=== PATIENT | female | born 1965 | race Caucasian/White ===

== ENCOUNTER → 2017-02-23 | Outpatient (REF) | payer MEDICARE ==
[~2017-02-23] MED LIST: /CLON1TA OR; /OXYC15TA OR; /PANT40TA OR; ABIL2TAB PO; ALBU17IN2 INH; ATEN50TA2 PO; ATIV0.5T3 PO; ATIV1TAB2 OR; BUDE150T OR; EXALGO PO; FLAG500T; HEARTAB OR; HYDR25TA8 OR; IBUP200C PO; LASI20TA OR; LEVA500T; LODINE PO; LYRI75CA PO; MELOPOW PO; NEUR300C; NEUR300C PO; NEUR600T; NEXI20CA; OXYC10TA97 OR; PERC5TAB8; PERC5TAB8 OR; PERC5TAB8 PO; PREG100CA; PREG100CA PO; PROP80CA; SYMB80AE IN; TIZA4TAB; TRAM50TA2; TYLE500T53 OR; ULTR200T; VALA1TAB PO; VALI5TAB; VALI5TAB PO; VALS80CA OR; VICO5TAB; VITAMIN D50000 UNT; WELL200T; WELLBUTRIN PO; XOPEAER IN; [UNRECOGNIZED DRUG - CODE]; [UNRECOGNIZED DRUG - CODE] PO; nucynta PO
[2017-02-23 18:58] LABS: MEAN CORPUSCULAR HEMOGLOBIN 29.1 pg (27.0-33.0); MEAN CORPUSCULAR HGB CONC 32.4 g/dl (32.0-36.5); MEAN CORPUSCULAR VOLUME 90.1 fl (80.0-96.0); PLATELET COUNT, AUTOMATED 308 10^3/uL (150-450); RED CELL DISTRIBUTION WIDTH 12.7 % (11.5-14.5); WHITE BLOOD COUNT 8.1 10^3/uL (4.0-10.0)
[2017-02-23 19:18] LABS: ANION GAP 7 MEQ/L (8-16); BLOOD UREA NITROGEN 20 MG/DL (7-18); CALCIUM LEVEL 8.7 MG/DL (8.5-10.1); CARBON DIOXIDE LEVEL 29 MEQ/L (21-32); CHLORIDE LEVEL 107 MEQ/L (98-107); CREATININE FOR GFR 0.98 MG/DL (0.55-1.02); FREE T4 0.99 NG/DL (0.76-1.46); GLOMERULAR FILTRATION RATE > 60.0 (>51); GLUCOSE, FASTING 132 MG/DL (70-105); POTASSIUM SERUM 4.2 MEQ/L (3.5-5.1); SODIUM LEVEL 143 MEQ/L (136-145)
== END ==
LOC: M SFHCLERA 13:32
PROVIDERS: ATTEND Family Medicine
DX: M25.50 Pain in unspecified joint (principal); Z79.899 Other long term (current) drug therapy

== ENCOUNTER → 2017-08-31 | Outpatient (REF) | payer MEDICARE, SELFPAY ==
[2017-08-31 12:39] LABS: ALBUMIN 3.3 GM/DL (3.2-5.2); ALBUMIN/GLOBULIN RATIO 0.85 (1.00-1.93); ALKALINE PHOSPHATASE 99 U/L (45-117); ALT/SGPT 16 U/L (12-78); ANION GAP 6 MEQ/L (8-16); AST/SGOT 14 U/L (7-37); BILIRUBIN,TOTAL 0.5 MG/DL (0.2-1.0); BLOOD UREA NITROGEN 18 MG/DL (7-18); CALCIUM LEVEL 8.5 MG/DL (8.5-10.1); CARBON DIOXIDE LEVEL 28 MEQ/L (21-32); CHLORIDE LEVEL 108 MEQ/L (98-107); CHOLESTEROL LEVEL 202 MG/DL (<200); CHOLESTEROL RISK RATIO 3.258 (<5); CREATININE FOR GFR 1.09 MG/DL (0.55-1.30); GLOMERULAR FILTRATION RATE 56.1 (>51); GLUCOSE, FASTING 67 MG/DL (70-100); HDL CHOLESTEROL 62 MG/DL (>40); LDL CHOLESTEROL 123.8 MG/DL (<100); NON-HDL-C 140 MG/DL; POTASSIUM SERUM 4.3 MEQ/L (3.5-5.1); SODIUM LEVEL 142 MEQ/L (136-145); TOTAL PROTEIN 7.2 GM/DL (6.4-8.2); TRIGLYCERIDES LEVEL 81 MG/DL (<150)
[2017-08-31 12:58] LABS: ESTIMATED AVERAGE GLUCOSE 103 MG/DL (60-110); HEMOGLOBIN A1c 5.2 %
== END ==
LOC: M SFHCLERA 08:16
DX: I10 Essential (primary) hypertension (principal); E89.0 Postprocedural hypothyroidism; E78.2 Mixed hyperlipidemia; R73.01 Impaired fasting glucose
CPT/HCPCS: 84443

== ENCOUNTER → 2018-01-08 | Outpatient (CLI) | payer BC | LOC: M RAD 17:06 | DX: Z12.31 Encounter for screening mammogram for malignant neoplasm of breast (principal) ==

== ENCOUNTER → 2018-06-01 | Outpatient (REF) | payer BC ==
[2018-06-01 17:11] LABS: HEMOGLOBIN A1c 5.9 %
[2018-06-01 17:29] LABS: ALBUMIN 3.5 GM/DL (3.2-5.2); ALT/SGPT 22 U/L (12-78); BILIRUBIN,TOTAL 0.5 MG/DL (0.2-1.0); BLOOD UREA NITROGEN 20 MG/DL (7-18); CALCIUM LEVEL 8.7 MG/DL (8.5-10.1); CARBON DIOXIDE LEVEL 23 MEQ/L (21-32); CHLORIDE LEVEL 104 MEQ/L (98-107); CHOLESTEROL LEVEL 167 MG/DL (<200); CHOLESTEROL RISK RATIO 3.211 (<5); CREATININE FOR GFR 0.97 MG/DL (0.55-1.30); GLOMERULAR FILTRATION RATE > 60.0 (>51); GLUCOSE, FASTING 77 MG/DL (70-100); HDL CHOLESTEROL 52 MG/DL (>40); LDL CHOLESTEROL 91 MG/DL (<100); NON-HDL-C 115 MG/DL; POTASSIUM SERUM 4.5 MEQ/L (3.5-5.1); SODIUM LEVEL 138 MEQ/L (136-145); TOTAL PROTEIN 7.5 GM/DL (6.4-8.2); TRIGLYCERIDES LEVEL 122 MG/DL (<150)
== END ==
LOC: M SFHCLERA 14:43
PROVIDERS: ATTEND Nurse Practitioner Family
DX: E78.2 Mixed hyperlipidemia (principal); E89.0 Postprocedural hypothyroidism

== ENCOUNTER → 2019-03-04 | Outpatient (REF) | payer OTHER ==
[~2019-03-04] MED LIST changes: -/CLON1TA OR; -/OXYC15TA OR; -/PANT40TA OR; +CLON-412 OR; +OXYC1TAB32 OR; +PROT1TAB2 OR
[2019-03-04 20:37] LABS: FREE T4 1.17 NG/DL (0.76-1.46); THYROID STIMULATING HORMONE 1.14 uIU/ML (0.358-3.740)
== END ==
LOC: M SFHCLERA 15:13
PROVIDERS: ATTEND Nurse Practitioner Family
DX: E89.0 Postprocedural hypothyroidism (principal)

== ENCOUNTER 2019-07-18 14:21 | Emergency (ER) | payer OTHER ==
[~2019-07-18] VITALS: Ht 165.1 cm; Wt 100.6 kg
[2019-07-18 14:53] LABS: BASO # 0.1 10^3/uL (0.0-0.2); BASO % 0.7 % (0.0-1.0); EOS # 0.2 10^3/uL (0.0-0.5); EOS % 2.5 % (0.0-3.0); HEMATOCRIT 42.3 % (36.0-47.0); HEMOGLOBIN 14.2 g/dl (12.0-15.5); LYMPH % 23.3 % (24.0-44.0); MEAN CORPUSCULAR HEMOGLOBIN 29.2 pg (27.0-33.0); MEAN CORPUSCULAR HGB CONC 33.6 g/dl (32.0-36.5); MONO # 0.6 10^3/uL (0.0-0.8); MONO % 6.8 % (0.0-5.0); NEUTROPHILS # 5.8 10^3/uL (1.5-8.5); NEUTROPHILS % 66.2 % (36.0-66.0); PLATELET COUNT, AUTOMATED 318 10^3/uL (150-450); RED BLOOD COUNT 4.86 10^6/uL (4.00-5.40); WHITE BLOOD COUNT 8.7 10^3/uL (4.0-10.0)
[2019-07-18 15:21] LABS: BLOOD UREA NITROGEN 22 MG/DL (7-18); CALCIUM LEVEL 8.9 MG/DL (8.5-10.1); CARBON DIOXIDE LEVEL 27 MEQ/L (21-32); CHLORIDE LEVEL 106 MEQ/L (98-107); CK-MB VALUE MASS < 1.0 NG/ML (<3.6); CPK CREATINE PHOSPHOKINASE 123 U/L (26-192); CREATININE FOR GFR 1.13 MG/DL (0.55-1.30); GLOMERULAR FILTRATION RATE 53.4 (>51); GLUCOSE, FASTING 147 MG/DL (70-100); MB/CK RELATIVE INDEX 0.81 (< OR =4); POTASSIUM SERUM 3.9 MEQ/L (3.5-5.1); SODIUM LEVEL 139 MEQ/L (136-145); TROPONIN I < 0.02 NG/ML (< 0.10)
[2019-07-18 17:24] LABS: CK-MB VALUE MASS < 1.0 NG/ML (<3.6); CPK CREATINE PHOSPHOKINASE 112 U/L (26-192); MB/CK RELATIVE INDEX 0.89 (< OR =4); TROPONIN I < 0.02 NG/ML (< 0.10)
[2019-07-18 17:38] VITALS: BP 170/95
--- NOTE | 2019-07-18 17:39 | REP ---
Portable chest x-ray: Single view. History: Chest pain. Comparison chest x-ray April 24, 2012. Findings: Monitoring electrodes are seen overlying the chest. There are surgical clips in the soft tissues of the neck on the right side consistent with previous thyroid surgery. The lungs are well inflated and clear. Heart is not enlarged. Pulmonary vasculature is not increased. No significant bony abnormality is appreciated. Heart size is normal. Impression: No acute disease. Surgical clips in the soft tissues of the neck on the right side. Electronically Signed by Juan Pablo Schmidt MD 07/18/2019 07:16 P
--- NOTE | 2019-07-19 12:27 | ECGEPIP ---
[facility] - ED Test Date: 2019-07-18 Pat Name: TAMMY OLMSTEAD Department: Room: - Gender: Female Clinical Specialist Vascular: jorge a : 1965 Requested By: PAULA PRECIADO Order Number: [id number] Reading MD: Ingrid Mcbride Measurements Intervals [place] Rate: 73 P: 23 [place]: 194 QRS: 12 QRSD: 86 T: 25 QT: 374 QTc: 413 Interpretive Statements SINUS RHYTHM SIMILAR 07/18/19 Electronically Signed on 07-19-2019 12:27:18 EDT by Ingrid Mcbride
--- NOTE | 2019-07-19 12:27 | ECGEPIP ---
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
== END 2019-07-18 18:11 | disposition home or self-care (01) ==
LOC: M ED 14:21
DX: R07.9 Chest pain, unspecified (principal); I10 Essential (primary) hypertension; K21.9 Gastro-esophageal reflux disease without esophagitis; J45.909 Unspecified asthma, uncomplicated; M54.2 Cervicalgia; F41.9 Anxiety disorder, unspecified; F17.210 Nicotine dependence, cigarettes, uncomplicated; Z88.0 Allergy status to penicillin; Z88.2 Allergy status to sulfonamides; Z88.5 Allergy status to narcotic agent; Z88.8 Allergy status to other drugs, medicaments and biological substances; Z91.041 Radiographic dye allergy status; Z79.899 Other long term (current) drug therapy

== ENCOUNTER 2019-08-29 18:43 | Emergency (ER) | payer MEDICARE, OTHER ==
[~2019-08-29] VITALS: Ht 165.1 cm; Wt 103.8 kg
[2019-08-29 18:43] VITALS: BP 162/95
[2019-08-29] MEDS ORDERED: META1TAB22 (18:50)
[2019-08-29] MEDS ORDERED: OXYC10TA3 (18:50)
[2019-08-29] MEDS ORDERED: LEVO50TA5 PO (19:04)
--- NOTE | 2019-08-29 23:07 | REP ---
REASON: Pain. There is tricompartmental marginal osteophytosis with medial compartmental narrowing and patellofemoral joint space narrowing. There is no acute fracture, dislocation, or subluxation. IMPRESSION: Chronic changes. Electronically Signed by Moises Ramirez DO 08/30/2019 08:27 A
== END 2019-08-29 20:24 | disposition home or self-care (01) ==
LOC: M ED 18:43
DX: M25.561 Pain in right knee (principal); I10 Essential (primary) hypertension; J45.909 Unspecified asthma, uncomplicated; K58.9 Irritable bowel syndrome, unspecified; F17.210 Nicotine dependence, cigarettes, uncomplicated; G43.909 Migraine, unspecified, not intractable, without status migrainosus; G35 Multiple sclerosis; F41.9 Anxiety disorder, unspecified; F32.9 Major depressive disorder, single episode, unspecified; Z88.0 Allergy status to penicillin; Z88.1 Allergy status to other antibiotic agents; Z88.2 Allergy status to sulfonamides; Z88.5 Allergy status to narcotic agent; Z88.6 Allergy status to analgesic agent; Z88.8 Allergy status to other drugs, medicaments and biological substances; Z91.041 Radiographic dye allergy status; Z79.899 Other long term (current) drug therapy

== ENCOUNTER 2019-09-15 11:20 | Emergency (ER) | payer MEDICARE ==
[~2019-09-15] VITALS: Ht 165.1 cm; Wt 102.6 kg
[~2019-09-15 11:20] MED LIST changes: +LEVO50TA5 PO; +META1TAB22; +OXYC10TA3
[2019-09-15 11:21] VITALS: BP 143/83
[2019-09-15] MEDS ORDERED: META1TAB22 PO (11:36)
[2019-09-15] MEDS ORDERED: CLON-412 PO (11:36)
[2019-09-15] MEDS ORDERED: ALBU8.5H PO (11:36)
--- NOTE | 2019-09-16 12:36 | REP ---
LEFT RIBS: REASON: Left-sided pain after trauma. Preliminary report given by Dr. Pereyra. FINDINGS: Five views of the ribs show no acute fracture or destructive osseous lesion. The accompanying frontal view of the chest shows no cardiomegaly, infiltrates, effusions or pneumothoraces. IMPRESSION: Negative rib series. Electronically Signed by Moises Ramirez DO 09/16/2019 03:16 P
== END 2019-09-15 12:38 | disposition home or self-care (01) ==
LOC: M ED 11:20
DX: S23.41XA Sprain of ribs, initial encounter (principal); W01.0XXA Fall on same level from slipping, tripping and stumbling without subsequent striking against object, initial encounter; Y92.89 Other specified places as the place of occurrence of the external cause; Y93.01 Activity, walking, marching and hiking; G35 Multiple sclerosis; I10 Essential (primary) hypertension; J45.909 Unspecified asthma, uncomplicated; K21.9 Gastro-esophageal reflux disease without esophagitis; K58.9 Irritable bowel syndrome, unspecified; F41.9 Anxiety disorder, unspecified; F32.9 Major depressive disorder, single episode, unspecified; G43.909 Migraine, unspecified, not intractable, without status migrainosus; Z79.899 Other long term (current) drug therapy; F17.200 Nicotine dependence, unspecified, uncomplicated; Z87.442 Personal history of urinary calculi; Z91.041 Radiographic dye allergy status; Z88.0 Allergy status to penicillin; Z88.5 Allergy status to narcotic agent; Z88.2 Allergy status to sulfonamides; Z88.8 Allergy status to other drugs, medicaments and biological substances

== ENCOUNTER → 2019-09-30 | Outpatient (REF) | payer MEDICARE ==
[~2019-09-30] MED LIST changes: +ALBU8.5H PO; +CLON-412 PO; +DOXY-342 PO; +META1TAB22 PO
[2019-09-30 13:13] LABS: BLOOD UREA NITROGEN 19 MG/DL (7-18); CARBON DIOXIDE LEVEL 25 MEQ/L (21-32); CHLORIDE LEVEL 106 MEQ/L (98-107); CHOLESTEROL LEVEL 198 MG/DL (<200); CHOLESTEROL RISK RATIO 3.413 (<5); CREATININE FOR GFR 0.97 MG/DL (0.55-1.30); GLOMERULAR FILTRATION RATE > 60.0 (>51); GLUCOSE, FASTING 95 MG/DL (70-100); HDL CHOLESTEROL 58 MG/DL (>40); LDL CHOLESTEROL 118 MG/DL (<100); NON-HDL-C 140 MG/DL; POTASSIUM SERUM 4.2 MEQ/L (3.5-5.1); SODIUM LEVEL 139 MEQ/L (136-145); TRIGLYCERIDES LEVEL 110 MG/DL (<150)
[2019-09-30 15:14] LABS: HEMOGLOBIN A1c 5.6 %
== END ==
LOC: M SFHCLERA 09:54
PROVIDERS: ATTEND Family Medicine
DX: E89.0 Postprocedural hypothyroidism (principal); I10 Essential (primary) hypertension; E78.2 Mixed hyperlipidemia; R73.01 Impaired fasting glucose
CPT/HCPCS: 36415; 80048; 80061; 83036; 84443; G0463

== ENCOUNTER 2020-01-25 09:28 | Emergency (ER) | payer MEDICARE ==
[~2020-01-25] VITALS: Ht 165.1 cm; Wt 103.1 kg
[~2020-01-25 09:28] MED LIST changes: -DOXY-342 PO
[2020-01-25] MEDS ORDERED: COMBIVENT RESPIMAT 100-20MCG INHALER 4GM INH STA (10:05)
[2020-01-25 10:21] LABS: BASO # 0.1 10^3/uL (0.0-0.2); BASO % 0.6 % (0.0-1.0); EOS # 0.7 10^3/uL (0.0-0.5); EOS % 7.9 % (0.0-3.0); HEMATOCRIT 41.9 % (36.0-47.0); HEMOGLOBIN 13.7 g/dl (12.0-15.5); LYMPH % 21.5 % (24.0-44.0); MEAN CORPUSCULAR HEMOGLOBIN 28.2 pg (27.0-33.0); MEAN CORPUSCULAR HGB CONC 32.7 g/dl (32.0-36.5); MEAN CORPUSCULAR VOLUME 86.2 fl (80.0-96.0); MONO # 0.6 10^3/uL (0.0-0.8); MONO % 6.6 % (0.0-5.0); NEUTROPHILS # 5.9 10^3/uL (1.5-8.5); NEUTROPHILS % 63.2 % (36.0-66.0); PLATELET COUNT, AUTOMATED 298 10^3/uL (150-450); RED BLOOD COUNT 4.86 10^6/uL (4.00-5.40); WHITE BLOOD COUNT 9.4 10^3/uL (4.0-10.0)
[2020-01-25 10:50] LABS: ALBUMIN 3.1 GM/DL (3.2-5.2); ALT/SGPT 19 U/L (12-78); BILIRUBIN,DIRECT 0.2 MG/DL (0.0-0.2); BILIRUBIN,TOTAL 0.8 MG/DL (0.2-1.0); BLOOD UREA NITROGEN 14 MG/DL (7-18); CALCIUM LEVEL 8.6 MG/DL (8.5-10.1); CARBON DIOXIDE LEVEL 26 MEQ/L (21-32); CHLORIDE LEVEL 109 MEQ/L (98-107); CK-MB VALUE MASS 1.4 NG/ML (<3.6); CPK CREATINE PHOSPHOKINASE 132 U/L (26-192); CREATININE FOR GFR 0.97 MG/DL (0.55-1.30); GLOMERULAR FILTRATION RATE > 60.0 (>51); GLUCOSE, FASTING 101 MG/DL (70-100); MB/CK RELATIVE INDEX 1.06 (< OR =4); POTASSIUM SERUM 4.4 MEQ/L (3.5-5.1); SODIUM LEVEL 141 MEQ/L (136-145); TOTAL PROTEIN 7.4 GM/DL (6.4-8.2); TROPONIN I < 0.02 NG/ML (< 0.10)
--- NOTE | 2020-01-25 12:05 | REPVR ---
PROCEDURE INFORMATION: Exam: XR Chest, 2 Views Exam date and time: 01/25/2020 11:27 AM Age: 54 years old Clinical indication: Cough and wheezing TECHNIQUE: Imaging protocol: XR of the chest Views: 2 views. COMPARISON: CR Ribs uni W-PA CHEST ONLY LEFT 09/15/2019 11:47 AM FINDINGS: Tubes, catheters and devices: Surgical clips at the right neck/thoracic inlet are redemonstrated. Lungs: An approximately 13 mm faint rounded density projects over the anterior heart seen on the lateral view. No correlate opacity is definitively identified on the frontal view. The lungs otherwise appear well aerated. Pleural space: No pleural effusion. No pneumothorax. Heart/Mediastinum: The cardiomediastinal silhouette is within normal limits for size and contour. Bones/joints: No acute osseous abnormality. IMPRESSION: Potential small airspace disease or pulmonary nodule projecting over the heart seen only on the lateral view. Small infectious pneumonia is not excluded. Short-term follow-up PA and lateral chest x-ray is recommended to ensure its resolution to exclude a persistent pulmonary nodule. Electronically signed by: Sergo Cardoso On 01/25/2020 12:05:19 PM
[2020-01-25] MEDS ORDERED: DOXY-342 PO (12:15)
[2020-01-25 12:23] VITALS: BP 158/88
--- NOTE | 2020-01-26 20:31 | ECGEPIP ---
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
--- NOTE | 2020-01-27 10:54 | ED PDOC ---
Post-Departure Follow-Up certiified letter sent to pt re formal read of cxr. needs fu. obtain pcp name an d fax. if no pcp refer to [facility] and fax ,Mary Grace Rutherford MD Jan 27, 2020 10:54
== END 2020-01-25 12:35 | disposition home or self-care (01) ==
LOC: M ED 09:28
DX: B34.8 Other viral infections of unspecified site (principal); R91.8 Other nonspecific abnormal finding of lung field; I10 Essential (primary) hypertension; J45.909 Unspecified asthma, uncomplicated; G35 Multiple sclerosis; M79.7 Fibromyalgia; F17.200 Nicotine dependence, unspecified, uncomplicated; Z88.1 Allergy status to other antibiotic agents; Z88.2 Allergy status to sulfonamides; Z88.6 Allergy status to analgesic agent; Z88.8 Allergy status to other drugs, medicaments and biological substances; Z91.041 Radiographic dye allergy status; Z79.51 Long term (current) use of inhaled steroids; Z79.899 Other long term (current) drug therapy

== ENCOUNTER → 2020-02-24 | Outpatient (CLI) | payer MEDICARE ==
[~2020-02-24] MED LIST changes: +DOXY-342 PO
[2020-02-24 08:33] LABS: APPEARANCE, URINE CLOUDY (CLEAR); BACTERIA, URINE AUTO 1+ (NEGATIVE); BILIRUBIN, URINE AUTO NEGATIVE (NEGATIVE); BLOOD, URINE BLOOD NEGATIVE (NEGATIVE); CALCIUM OXALATE CRYSTALS SMALL; COLOR, URINE YELLOW (YELLOW); GLUCOSE, URINE (UA) AUTO NEGATIVE (NEGATIVE); KETONE, URINE AUTO NEGATIVE (NEGATIVE); LEUKOCYTE ESTERASE, URINE AUTO 3+ (NEGATIVE); MUCUS, URINE MODERATE (NEGATIVE); NITRITE, URINE AUTO NEGATIVE (NEGATIVE); PROTEIN, URINE AUTO 1+ mg/dL (NEGATIVE); RBC, URINE AUTO 10 /HPF (0-3); SPECIFIC GRAVITY URINE AUTO 1.028 (1.002-1.035); SQUAMOUS EPITHELIAL CELL UR AU 10 /HPF (0-6); UROBILINOGEN, URINE AUTO 0.2 mg/dL (0.0-2.0); WBC, URINE AUTO 25 /HPF (0-3)
[2020-02-24 08:38] LABS: BASO # 0.1 10^3/uL (0.0-0.2); BASO % 0.7 % (0.0-1.0); EOS # 0.9 10^3/uL (0.0-0.5); EOS % 8.6 % (0.0-3.0); HEMOGLOBIN 13.9 g/dl (12.0-15.5); LYMPH # 2.9 10^3/uL (1.5-5.0); LYMPH % 28.4 % (24.0-44.0); MEAN CORPUSCULAR HEMOGLOBIN 28.7 pg (27.0-33.0); MEAN CORPUSCULAR HGB CONC 33.1 g/dl (32.0-36.5); MEAN CORPUSCULAR VOLUME 86.6 fl (80.0-96.0); MONO # 0.6 10^3/uL (0.0-0.8); MONO % 6.3 % (0.0-5.0); NEUTROPHILS # 5.6 10^3/uL (1.5-8.5); NEUTROPHILS % 55.7 % (36.0-66.0); PLATELET COUNT, AUTOMATED 328 10^3/uL (150-450); RED BLOOD COUNT 4.85 10^6/uL (4.00-5.40); WHITE BLOOD COUNT 10.1 10^3/uL (4.0-10.0)
[2020-02-24 09:12] LABS: ALBUMIN 3.1 GM/DL (3.2-5.2); BILIRUBIN,TOTAL 0.5 MG/DL (0.2-1.0); CALCIUM LEVEL 9.2 MG/DL (8.5-10.1); CHOLESTEROL RISK RATIO 3.647 (<5); CREATININE FOR GFR 1.12 MG/DL (0.55-1.30); FREE T4 1.23 NG/DL (0.76-1.46); POTASSIUM SERUM 4.2 MEQ/L (3.5-5.1); THYROID STIMULATING HORMONE 2.18 uIU/ML (0.358-3.740); TOTAL PROTEIN 7.1 GM/DL (6.4-8.2)
[2020-02-24 09:20] LABS: HEMOGLOBIN A1c 5.8 %
--- NOTE | 2020-02-24 10:01 | REP ---
INDICATION: SOLITARY PULMONARY NODULE. COMPARISON: Radiographs 01/25/2020. TECHNIQUE: CT chest performed without the use of intravenous contrast. Sagittal and coronal reconstruction images are performed. FINDINGS: Lungs: There is mild bibasilar fibrotic change. There is a tiny calcified granuloma in the right lower lobe. Mediastinum: No gross adenopathy. Monika: No gross adenopathy. Axilla: No gross adenopathy. Pleura: No effusion. Heart: Not enlarged. Thoracic aorta: No aneurysm. Upper abdominal structures: Grossly unremarkable. Visualized osseous structures: There are mild degenerative changes of the spine without compression deformity. There are metallic clips in the region of the right thyroid bed.. IMPRESSION: Mild bibasilar fibrotic changes. Tiny calcified granuloma right lower lobe. Otherwise no pulmonary nodule seen and no evidence of infiltrate. <Electronically signed by Dwayne Hernandez > 02/24/20 0957
[2020-02-24 11:26] LABS: TOTAL 25(OH) VITAMIN D 31.5 NG/ML (30.0-100.0)
[2020-02-26 14:10] LABS: Lyme Disease IgG Ab 18 kDa Ban Present (.); Lyme Disease IgG Ab 23 kDa Ban Present (.); Lyme Disease IgG Ab 28 kDa Ban Absent (.); Lyme Disease IgG Ab 30 kDa Ban Absent (.); Lyme Disease IgG Ab 39 kDa Ban Present (.); Lyme Disease IgG Ab 41 kDa Ban Present (.); Lyme Disease IgG Ab 45 kDa Ban Absent (.); Lyme Disease IgG Ab 58 kDa Ban Absent (.); Lyme Disease IgG Ab 66 kDa Ban Absent (.); Lyme Disease IgG Ab 93 kDa Ban Absent (.); Lyme Disease IgG West Blot Int Negative (.); Lyme Disease IgG/IgM Antibodie 1.26 ISR (0.00-0.90); Lyme Disease IgM Ab 23 kDa Ban Present (.); Lyme Disease IgM Ab 39 kDa Ban Present (.); Lyme Disease IgM Ab 41 kDa Ban Absent (.); Lyme Disease IgM Ab Quantitati 3.13 index (0.00-0.79); Lyme Disease IgM West Blot Int Positive (.)
== END ==
LOC: M RAD 06:53
PROVIDERS: ATTEND Physician Assistant
DX: R91.1 Solitary pulmonary nodule (principal); J18.9 Pneumonia, unspecified organism; Z79.899 Other long term (current) drug therapy

== ENCOUNTER → 2020-04-06 | Outpatient (REF) | payer MEDICARE ==
[2020-04-06 15:15] LABS: BASO # 0.1 10^3/uL (0.0-0.2); BASO % 0.7 % (0.0-1.0); EOS # 0.8 10^3/uL (0.0-0.5); EOS % 7.7 % (0.0-3.0); HEMATOCRIT 40.8 % (36.0-47.0); HEMOGLOBIN 13.6 g/dl (12.0-15.5); LYMPH # 2.4 10^3/uL (1.5-5.0); LYMPH % 24.1 % (24.0-44.0); MEAN CORPUSCULAR HEMOGLOBIN 28.8 pg (27.0-33.0); MEAN CORPUSCULAR HGB CONC 33.3 g/dl (32.0-36.5); MEAN CORPUSCULAR VOLUME 86.4 fl (80.0-96.0); MONO # 0.6 10^3/uL (0.0-0.8); MONO % 6.3 % (0.0-5.0); NEUTROPHILS # 6.1 10^3/uL (1.5-8.5); NEUTROPHILS % 60.8 % (36.0-66.0); PLATELET COUNT, AUTOMATED 311 10^3/uL (150-450); RED BLOOD COUNT 4.72 10^6/uL (4.00-5.40); WHITE BLOOD COUNT 10.1 10^3/uL (4.0-10.0)
[2020-04-06 15:42] LABS: C REACTIVE PROTEIN QUANTITATIV 1.85 MG/DL (0.00-0.30); RHEUMATOID FACTOR QUANT < 10.0 IU/ML (<15.0)
[2020-04-06 15:47] LABS: ERYTHROCYTE SEDIMENTATION RATE 35 mm/hr (0-30)
[2020-04-09 04:06] LABS: ANA (HEP2) Negative (.); CYCLIC CITRULLINATED PEPTIDE 5 units (0-19)
== END ==
LOC: M SFHCPLAZ 12:26
PROVIDERS: ATTEND Internal Medicine Infectious Disease
DX: Z22.7 Latent tuberculosis (principal); A69.20 Lyme disease, unspecified; R76.8 Other specified abnormal immunological findings in serum

== ENCOUNTER 2020-06-02 08:06 | Emergency (ER) | payer MEDICARE ==
[~2020-06-02] VITALS: Ht 165.1 cm; Wt 100.7 kg
--- OUTSIDE RECORDS SUMMARY | 2020-06-02 08:17 | CCD ---
Author Author [facility] Organization [facility] Address Unknown Phone Unavailable Care Team Providers Care Paving Rammer Name Role Phone Chet Robins Unavailable PROBLEMS Type Condition ICD9-CM Code [id number] Code Onset Dates Condition S tatus SNOMED Code Notes Problem Primary osteoarthritis of left knee M17.12 Acti ve 386335708 Problem Postsurgical hypothyroidism E89.0 Active 2705 9002 Problem Mixed hyperlipidemia E78.2 Active 781033347 Problem Low back pain radiating to right leg M54.5 Act wes 064334275 Problem Bursitis of other bursa of right hip M70.71 Act wes 63829268 Problem History of tobacco use Z87.891 Active 546688823 9103 Problem Genital herpes simplex, unspecified site A60.00 Active 21359831 Problem External hemorrhoids K64.4 Active 59959170 Problem Mild persistent asthma without complication J45.30 Active 415056686 Problem MS (multiple sclerosis) G35 Active 84431468 Problem MICHELLE positive R76.8 Active 194004374 Problem Insomnia, unspecified type G47.00 Active 85623 2001 Problem Mild intermittent asthma without complication J45. 20 Active 506553230 Problem MCTD (mixed connective tissue disease) M35.1 A ctive 476106129 Problem Anxiety F41.9 Active 76567563 Problem Pain in left hip M25.552 Active 13956852 Problem Pain in right hip M25.551 Active 42445346 Problem Essential (primary) hypertension I10 Active 03033779 ALLERGIES Allergen (clinical drug ingredient) Drug/Non Drug Allergy do cumented on EMR Reaction Allergy Type Onset Date Status Vicodin Agitation Drug Allergy Active vancomycin Vancomycin HCl([facility] Code:[address]-17) Hives Drug All ergy Active Codeine Phosphate([facility] Code:[address]-93) Hives Drug Allergy Active carisoprodol Soma([facility] Code:[address]-71) hands itch Drug Allergy Active IVP Dye Anaphylaxis Non Drug Allergy Active promethazine Phenergan([facility] Code:[address]-87) Agitation Drug Allerg y Active Sulfa (for allergy use only) HIves Drug Allergy Active Penicillin (For Allergies Use Only) anaphylaxis Drug Aller gy Active atropine / hyoscyamine / phenobarbital / scopolamine D onnatal([facility] Code:[address]-76) HIves Drug Allergy Active ketorolac Ketorolac Tromethamine([facility] Code:[address]-90) Gi Blee d Drug Allergy Active Nitro-Dur([facility] Code:[address]-86) increased HR Drug Allerg y Active ENCOUNTERS from 1965 to 2020-04-24 Encounter Location Date Provider Diagnosis [address] [address] Apr, Chet Shimon IMMUNIZATIONS Vaccine Route Administration Date Status Influenza (6mo & up) Fluzone Unknown Feb 09, 2016 Adm inistered SOCIAL HISTORY Tobacco Use: Social History Observation Description Date Details (start date - stop date) Current Smoker Sex Assigned At : Social History Observation Description Sex Assigned At Unknown Education: Question Answer Notes Level of Education: High School Language: Question Answer Notes Languages spoken: Norwegian Uatsdin: Question Answer Notes Uatsdin 33 None Alcohol Screening: Question Answer Notes Did you have a drink containing alcohol in the past year? No Points 0 Interpretation Negative BMI Care Goal Follow-Up Question Answer Notes Above Normal BMI Follow-Up Dietary management educatio n, guidance, and counseling Tobacco Use: Question Answer Notes Are you a: current smoker REASON FOR REFERRAL No Information VITAL SIGNS No information MEDICATIONS Medication SIG (Take, Route, Frequency, Duration) Notes Start Da te End Date Status Doxycycline Hyclate 100 MG 1 capsule Orally Twice a day Jan, Not-Taking Skelaxin 800 MG 1 tablet Orally-dr littel four times a day Active Albuterol Sulfate HFA 108 (90 Base) MCG/ACT 2 puffs as needed Inhalation every 4 hrs as needed for 30 days Active Valtrex 1 GM 1 tablet Orally daily for 90 day(s) Active Clonidine HCl 0.1 MG 1 tablet Orally bid for 30 Days Active Neurontin 300 MG 3 capsule Orally bid August, Active Melatonin 3 MG 15 mg Orally before bedtime Active Proctosol HC 2.5 % 1 application to affected ar ea on rectum prn Rectal Twice a day for 30 day(s) Feb, Active Lasix 20 MG 1 tablet Orally Once a day as needed Active Aleve 220 MG 1 tablet as needed Orally every 12 hrs Active Levothyroxine Sodium 50 MCG 1 tablet on an empty stoma ch in the morning Orally Once a day August, Active Zofran ODT 4 MG 1 tab Orally once daily as needed for 90 day(s) Active Morphine Sulfate 30 MG 1 tablet as needed Orally bid Active Wellbutrin XL 300 MG 1 tablet in the morning Orally Once a day for 90 days Active PROCEDURES No Information RESULTS No Results REASON FOR VISIT Reschedule Appointment Request MEDICAL (GENERAL) HISTORY Type Description Date Medical History multiple sclerosis Medical History anxiety Medical History HTN Medical History low back pain Medical History asthma Medical History tobacco abuse Medical History GERD Medical History cervicalgia Medical History thyroid problems Medical History MICHELLE positive Surgical History back surgery 2002 Surgical History right partial thyroidectomy 1982 Surgical History partial hysterectomy 2007 Surgical History 6 kidney surgeries 9851-6070 Surgical History bladder surgery 1996 Surgical History lipoma x 3 2002 Surgical History biopsy - thyroid 05/2013 Surgical History left partial thyroidectomy 10/2013 Hospitalization History viral meningitis 1983, 1998,2002 Hospitalization History [facility] 10/2013 Goals Section No Information Health Concerns No Information MEDICAL EQUIPMENT No Information MENTAL STATUS No Information FUNCTIONAL STATUS No Information ASSESSMENTS No Information PLAN OF TREATMENT Medication Medication Name Sig Start Date Stop Date Aleve 220 MG 1 tablet as needed Orally every 12 hrs Skelaxin 800 MG 1 tablet Orally-dr edmond four times a day Levothyroxine Sodium 50 MCG 1 tablet on an empty stoma ch in the morning Orally Once a day August, Neurontin 300 MG 3 capsule Orally bid August, Next Appt Details Provider Name:Chet Robins, 2020-05-2 3 01:30:00 PM, [address] [place], [address], Insurance Providers Payer Name Payer Address Payer Phone Insured Name Patient Relati onship to Insured Coverage Start Date Coverage End Date MEDICARE COMPLETE [employer]ARE [address] [facility] [id number] AYSHA,TAMMY RANGEL self
--- OUTSIDE RECORDS SUMMARY | 2020-06-02 08:17 | CCD ---
Author Author [facility] Organization [facility] Address Unknown Phone Unavailable Care Team Providers Care Braz[employer] Name Role Phone Chet Robins Unavailable PROBLEMS Type Condition ICD9-CM Code [id number] Code Onset Dates Condition S tatus SNOMED Code Notes Problem Primary osteoarthritis of left knee M17.12 Acti ve 512560411 Problem Postsurgical hypothyroidism E89.0 Active 2705 9002 Problem Mixed hyperlipidemia E78.2 Active 168449168 Problem Low back pain radiating to right leg M54.5 Act wes 258729571 Problem Bursitis of other bursa of right hip M70.71 Act wes 93418449 Problem History of tobacco use Z87.891 Active 485267685 9103 Problem Genital herpes simplex, unspecified site A60.00 Active 58904408 Problem External hemorrhoids K64.4 Active 71180776 Problem Mild persistent asthma without complication J45.30 Active 518460198 Problem MS (multiple sclerosis) G35 Active 08029735 Problem MICHELLE positive R76.8 Active 330257952 Problem Insomnia, unspecified type G47.00 Active 58475 2001 Problem Mild intermittent asthma without complication J45. 20 Active 701786629 Problem MCTD (mixed connective tissue disease) M35.1 A ctive 787195896 Problem Anxiety F41.9 Active 59538261 Problem Pain in left hip M25.552 Active 47563061 Problem Pain in right hip M25.551 Active 09600999 Problem Essential (primary) hypertension I10 Active 29023524 ALLERGIES Allergen (clinical drug ingredient) Drug/Non Drug Allergy do cumented on EMR Reaction Allergy Type Onset Date Status Vicodin Agitation Drug Allergy Active vancomycin Vancomycin HCl([facility] Code:[address]-50) Hives Drug All ergy Active Codeine Phosphate([facility] Code:[address]-75) Hives Drug Allergy Active carisoprodol Soma([facility] Code:[address]-36) hands itch Drug Allergy Active IVP Dye Anaphylaxis Non Drug Allergy Active promethazine Phenergan([facility] Code:[address]-56) Agitation Drug Allerg y Active Sulfa (for allergy use only) HIves Drug Allergy Active Penicillin (For Allergies Use Only) anaphylaxis Drug Aller gy Active atropine / hyoscyamine / phenobarbital / scopolamine D onnatal([facility] Code:[address]-43) HIves Drug Allergy Active ketorolac Ketorolac Tromethamine([facility] Code:[address]-59) Gi Blee d Drug Allergy Active Nitro-Dur([facility] Code:[address]-02) increased HR Drug Allerg y Active ENCOUNTERS from 1965 to 2020-04-27 Encounter Location Date Provider Diagnosis [address] [address] Apr, Oliviafariha Shimon IMMUNIZATIONS Vaccine Route Administration Date Status Influenza (6mo & up) Fluzone Unknown Feb 09, 2016 Adm inistered SOCIAL HISTORY Tobacco Use: Social History Observation Description Date Details (start date - stop date) Current Smoker Sex Assigned At : Social History Observation Description Sex Assigned At Unknown Education: Question Answer Notes Level of Education: High School Language: Question Answer Notes Languages spoken: Estonian Nondenominational: Question Answer Notes Nondenominational 33 None Alcohol Screening: Question Answer Notes [...] Information RESULTS No Results REASON FOR VISIT Cancel Appointment Request MEDICAL (GENERAL) HISTORY Type Description [...] hysterectomy 2007 Surgical History 6 kidney surgeries 1152-8768 Surgical History bladder surgery 1996 Surgical History [...] Name:Chet Robins, 2020-05-2 3 01:30:00 PM, [address] [place], [address], Insurance Providers Payer Name Payer Address Payer Phone Insured Name Patient Relati onship to Insured Coverage Start Date Coverage End Date MEDICARE COMPLETE [employer]ARE [id number] [place] [phone] AYSHA,TAMMY elizabeth
--- OUTSIDE RECORDS SUMMARY | 2020-06-02 08:18 | CCD ---
Author Author [facility] Organization [facility] Address Unknown Phone Unavailable Care Team Providers Care Web Services Architect Name Role Phone Chet Robins Unavailable PROBLEMS Type Condition ICD9-CM Code YSM26-HA Code Onset Dates Condition S tatus SNOMED Code Notes Problem Primary osteoarthritis of left knee M17.12 Acti ve 869721255 Problem Postsurgical hypothyroidism E89.0 Active 2705 9002 Problem Mixed hyperlipidemia E78.2 Active 823018318 Problem Low back pain radiating to right leg M54.5 Act wes 300682230 Problem Bursitis of other bursa of right hip M70.71 Act wes 93983134 Problem History of tobacco use Z87.891 Active 980226861 9103 Problem Genital herpes simplex, unspecified site A60.00 Active 50410959 Problem External hemorrhoids K64.4 Active 96188561 Problem Mild persistent asthma without complication J45.30 Active 308240204 Problem MS (multiple sclerosis) G35 Active 52811923 Problem MICHELLE positive R76.8 Active 312362703 Problem Insomnia, unspecified type G47.00 Active 72514 2001 Problem Mild intermittent asthma without complication J45. 20 Active 870423837 Problem MCTD (mixed connective tissue disease) M35.1 A ctive 904712295 Problem Anxiety F41.9 Active 90618891 Problem Pain in left hip M25.552 Active 10377184 Problem Pain in right hip M25.551 Active 32591891 Problem Essential (primary) hypertension I10 Active 05403163 ALLERGIES Allergen (clinical drug ingredient) Drug/Non Drug Allergy do cumented on EMR Reaction Allergy Type Onset Date Status Vicodin Agitation Drug Allergy Active vancomycin Vancomycin HCl([facility] Code:[address]-59) Hives Drug All ergy Active Codeine Phosphate([facility] Code:[address]-46) Hives Drug Allergy Active carisoprodol Soma([facility] Code:[address]-75) hands itch Drug Allergy Active IVP Dye Anaphylaxis Non Drug Allergy Active promethazine Phenergan([facility] Code:[address]-34) Agitation Drug Allerg y Active Sulfa (for allergy use only) HIves Drug Allergy Active Penicillin (For Allergies Use Only) anaphylaxis Drug Aller gy Active atropine / hyoscyamine / phenobarbital / scopolamine D onnatal([facility] Code:[address]-88) HIves Drug Allergy Active ketorolac Ketorolac Tromethamine([facility] Code:[address]-48) Gi Blee d Drug Allergy Active Nitro-Dur([facility] Code:[address]-71) increased HR Drug Allerg y Active ENCOUNTERS from 1965 to 2020-04-13 Encounter Location Date Provider Diagnosis [address] [address] Mar, Chet Robins Lyme disease A69.20 ; Cervical pain M54. 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 No Points 0 Interpretation Negative BMI Care Goal Follow-Up Question Answer Notes Above Normal BMI Follow-Up Dietary management educatio n, guidance, and counseling Tobacco Use: Question Answer Notes Are you a: current smoker REASON FOR REFERRAL No Information VITAL SIGNS Weight 224 lbs 14 Dec, 2020 Height 65 in Mar, BMI 37.27 kg/m2 Mar, Temperature 97 degrees Fahrenheit Mar, MEDICATIONS Medication SIG (Take, Route, Frequency, Duration) [...] 90 days Active PROCEDURES No Information RESULTS REASON FOR VISIT Lyme consult MEDICAL (GENERAL) HISTORY Type Description Date Medical History multiple sclerosis Medical History anxiety Medical History HTN Medical History low back pain Medical History asthma Medical History tobacco abuse Medical History GERD Medical History cervicalgia Medical History thyroid problems Medical History MICHELLE positive Surgical History back surgery 2002 Surgical History right partial thyroidectomy 1982 Surgical History partial hysterectomy 2007 Surgical History 6 kidney surgeries 2871-7260 Surgical History bladder surgery 1996 Surgical History lipoma x 3 2002 Surgical History biopsy - thyroid 05/2013 Surgical History left partial thyroidectomy 10/2013 Hospitalization History viral meningitis 1983, 1998,2002 Hospitalization History [facility] 10/2013 Goals Section No Information Health Concerns No Information MEDICAL EQUIPMENT No Information MENTAL STATUS No Information FUNCTIONAL STATUS No Information ASSESSMENTS Encounter Date Diagnosis Assessment Notes Treatment Notes Treatm ent Clinical Notes Mar, Lyme disease (ICD-10 - A69.20) Patient had erythema migrans thigh in 2018 treated with doxycycline for 10 days was not compliant. She now 1 year later has exhaustion joint pains and brain fogginess has 2/3 IGm bands and 4/10 IGG bands on 02/24/20, 01/24 she received 7 days doxycycline from ER and 3 more weeks from her primary without any effect. Titer positive could be persistently from original infection in 2019. She was advised to follow up with neurology she carries dianosis of MS and is not on TX ??. May need follow up brain MRI She will come in for labs at [facility] on Mar, Cervical pain (ICD-10 - M54.2) [facility] Mar, Postsurgical hypothyroidism (ICD-10 - E89.0) Mar, Essential (primary) hypertension (ICD-10 - I10) Ordering BMP to monitor renal function. Mar, Mixed hyperlipidemia (ICD-10 - E78.2) Mar, Impaired fasting glucose (ICD-10 - R73.01) Mar, Low back pain radiating to right leg (ICD-10 - M 54.5) [facility] Mar, History of herniated intervertebral disc (ICD-10 - Z87.39) [facility] 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 PPD Refused Tx 2 years ago was worried about interaction with thyroid meds, willing to reconsider Mar, Positive MICHELLE (antinuclear antibody) (ICD-10 - R7 6.8) Saw Dr Galeana 2017- was supposed to start methotrexate but she did want TX for latent TB and had not had a follow up for over a year, will repeat labs and discuss FU Reviewed all labs in [facility], MICHELLE positive 2013 and PATIENT SERVICES REP No family HX of autoimmune disease but father adopted, mother alzheimer when 60 Mar, 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 Able to control for most part. If unable to in future consider further evaluation. PLAN OF TREATMENT Medication Medication Name Sig Start Date Stop Date Aleve 220 MG 1 tablet as needed Orally every 12 hrs Skelaxin 800 MG 1 tablet Orally-dr littel four times a day Levothyroxine Sodium 50 MCG 1 tablet on an empty stoma ch in the morning Orally Once a day August, Neurontin 300 MG 3 capsule Orally bid August, Treatment Notes Assessment Notes Clinical Notes Lyme disease Patient had erythema migrans thigh in 2018 treated with doxycycline for 10 days was not compliant. She now 1 year later has exhaustion joint pains and brain fogginess has 2/3 IGm bands and 4/10 IGG bands on 02/24/20, 01/24 she received 7 days doxycycline from ER and 3 more weeks from her primary without any effect.Titer positive could be persistently from original infection in 2019. She was advised to follow up with neurology she carries dianosis of MS and is not on TX ??. May need follow up brain MRIShe will come in for labs at [facility] on Monday Cervical pain [facility]. Essential (primary) hypertension Orderin g BMP to monitor renal function. Low back pain radiating to right leg Ref [facility]ring [facility]. History of herniated intervertebral disc [facility]. 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 , always had negative PPDRefused Tx 2 years ago was worried about interaction with thyroid meds, willing to reconsider Positive MICHELLE (antinuclear antibody) Saw Dr Galeana 2017-12 was supposed to start methotrexate but she did want TX for latent TB and had not had a follow up for over a year, will repeat labs and discuss FUReviewed all labs in [facility], MICHELLE positive 2013 and RNPNo family HX of autoimmune disease but father adopted, mother alzheimer when 60 Mollaret's meningitis Had 3 episodes ericka es valtrex daily last episode was [address] Pelon Frances Next Appt Details 3 Weeks Reason: Provider Name:Chet Robins, 5 08:30:00 AM, [address] [place], [address], Insurance Providers Payer Name Payer Address Payer Phone Insured Name Patient Relati onship to Insured Coverage Start Date Coverage End Date MEDICARE COMPLETE [facility] [address] [address] [facility] [id number] WEEKS,TAMMY RANGEL self
--- OUTSIDE RECORDS SUMMARY | 2020-06-02 08:18 | CCD ---
Author Author [facility] Organization [facility] Address Unknown Phone Unavailable Support Name Relationship Address Phone COR TECH Next Of Kin [address] [facility] [address] [place] [address] PETER ZIMMER Next Of Kin [address] [place] [address] [facility] Next Of Kin Unknown Unavailable MISA OLMSTEAD Next Of Kin [address] [place] [address] [place] [address] [facility] Next Of Kin [address] [address] Unavailable UN Next Of Kin Unknown Unavailable [facility] Next Of Kin [address] [place] [address] [facility] Next Of Kin [address] [place] [address] [facility] Next Of Kin [address] [place] [address] [facility] Next Of Kin [address] [place] [address] GUIFOYLE [place] [address] . [place] [address] UE Next Of Kin Unknown Unavailable [facility] Next Of Kin [address] [place] [address] Roger EPPERSON Next Of Kin [address] [place] [address] INNA OLMSTEAD Next Of Kin [address] [facility] [address] [place] [address] INNA OLMSTEAD Next Of Kin [address] [place] [address] WEEKS, MISA ECON [address] [facility] [address] [place], Unavailable WEEKS, NIKIA ECON [address] [place] [address] [phone] Care Team Providers Care Pacs Administrator Name Role Phone SIMEON MCGRAW MD Unavailable Unavailable SIMEON MCGRAW MD Unavailable Unavailable SIMEON MCGRAW MD Unavailable Unavailable SIMEON MCGRAW MD Unavailable Unavailable SIMEON MCGRAW MD Unavailable Unavailable SIMEON MCGRAW MD Unavailable Unavailable SIMEON MCGRAW MD Unavailable Unavailable SIMEON MCGRAW MD Unavailable Unavailable SIMEON MCGRAW MD Unavailable Unavailable SIMEON MCGRAW MD Unavailable Unavailable SIMEON MCGRAW MD Unavailable Unavailable SIMEON MCGRAW MD Unavailable Unavailable SIMEON MCGRAW MD Unavailable Unavailable SIMEON MCGRAW MD Unavailable Unavailable SIMEON MCGRAW MD Unavailable Unavailable SIMEON MCGRAW MD Unavailable Unavailable SIMEON MCGRAW MD Unavailable Unavailable SIMEON MCGRAW MD Unavailable Unavailable SIMEON MCGRAW MD Unavailable Unavailable SIMEON MCGRAW MD Unavailable Unavailable SIMEON MCGRAW MD Unavailable Unavailable SIMEON MCGRAW MD Unavailable Unavailable SIMEON MCGRAW MD Unavailable Unavailable SIMEON MCGRAW MD Unavailable Unavailable SIMEON MCGRAW MD Unavailable Unavailable SIMEON MCGRAW MD Unavailable Unavailable SIMEON MCGRAW MD Unavailable Unavailable SIMEON MCGRAW MD Unavailable Unavailable SIMEON MCGRAW MD Unavailable Unavailable SIMEON MCGRAW MD Unavailable Unavailable SIMEON MCGRAW MD Unavailable Unavailable SIMEON MCGRAW MD Unavailable Unavailable SIMEON MCGRAW MD Unavailable Unavailable SIMEON MCGRAW MD Unavailable Unavailable SIMEON MCGRAW MD Unavailable Unavailable SIMEON MCGRAW MD Unavailable Unavailable SIMEON MCGRAW MD Unavailable Unavailable SIMEON MCGRAW MD Unavailable Unavailable SIMEON MCGRAW MD Unavailable Unavailable SIMEON MCGRAW MD Unavailable Unavailable SIMEON MCGRAW MD Unavailable Unavailable SIMEON MCGRAW MD Unavailable Unavailable SIMEON MCGRAW MD Unavailable Unavailable SIMEON MCGRAW MD Unavailable Unavailable SIMEON MCGRAW MD Unavailable Unavailable SIMEON MCGRAW MD Unavailable Unavailable SIMEON MCGRAW MD Unavailable Unavailable SIMEON MCGRAW MD Unavailable Unavailable SIMEON MCGRAW MD Unavailable Unavailable SIMEON MCGRAW MD Unavailable Unavailable Rafiq Jacob MD Unavailable Unavailable Garcia, M Jessenia PA-C Unavailable Unavailable Garcia, M Jessenia PA-C Unavailable Unavailable Garcia, M Jessenia PA-C Unavailable Unavailable Garcia, M Jessenia PA-C Unavailable Unavailable Garcia, M Jessenia PA-C Unavailable Unavailable Garcia, M Jessenia PA-C Unavailable Unavailable Garcia, M Jessenia PA-C Unavailable Unavailable Garcia, M Jessenia PA-C Unavailable Unavailable Garcia, M Jessenia PA-C Unavailable Unavailable Garcia, M Jessenia PA-C Unavailable Unavailable Garcia, M Jessenia PA-C Unavailable Unavailable Garcia, M Jessenia PA-C Unavailable Unavailable Garcia, M Jessenia PA-C Unavailable Unavailable Garcia, M Jessenia PA-C Unavailable Unavailable Garcia, M Jessenia PA-C Unavailable Unavailable Garcia, M Jessenia PA-C Unavailable Unavailable Garcia, M Jessenia PA-C Unavailable Unavailable Garcia, M Jessenia PA-C Unavailable Unavailable Garcia, M Jessenia PA-C Unavailable Unavailable Garcia, M Jessenia PA-C Unavailable Unavailable Garcia, M Jessenia PA-C Unavailable Unavailable Garcia, M Jessenia PA-C Unavailable Unavailable Garcia, M Jessenia PA-C Unavailable Unavailable Garcia, M Jessenia PA-C Unavailable Unavailable Garcia, M Jessenia PA-C Unavailable Unavailable Garcia, M Jessenia PA-C Unavailable Unavailable Garcia, M Jessenia PA-C Unavailable Unavailable Garcia, M Jessenia PA-C Unavailable Unavailable Garcia, M Jessenia PA-C Unavailable Unavailable Garcia, M Jessenia PA-C Unavailable Unavailable Garcia, M Jessenia PA-C Unavailable Unavailable Garcia, M Jessenia PA-C Unavailable Unavailable Garcia, M Jessenia PA-C Unavailable Unavailable CARINA, ZULMA PA Unavailable Unavailable CARINA, ZULMA PA Unavailable Unavailable CARINA, ZULMA PA Unavailable Unavailable CARINA, ZULMA PA Unavailable Unavailable CARINA, ZULMA PA Unavailable Unavailable CARINA, ZULMA PA Unavailable Unavailable CARINA, ZULMA PA Unavailable Unavailable CARINA, ZULMA PA Unavailable Unavailable CARINA, ZULMA PA Unavailable Unavailable CARINA, ZULMA PA Unavailable Unavailable CARINA, ZULMA PA Unavailable Unavailable CARINA, ZULMA PA Unavailable Unavailable CARINA, ZULMA PA Unavailable Unavailable CARINA, ZULMA PA Unavailable Unavailable CARINA, ZULMA PA Unavailable Unavailable CARINA, ZULMA PA Unavailable Unavailable CARINA, ZULMA PA Unavailable Unavailable CARINA, ZULMA PA Unavailable Unavailable CARINA, ZULMA PA Unavailable Unavailable CARINA, ZULMA PA Unavailable Unavailable CARINA, ZULMA PA Unavailable Unavailable CARINA, ZULMA PA Unavailable Unavailable CARINA, ZULMA PA Unavailable Unavailable CARINA, ZULMA PA Unavailable Unavailable CARINA, ZULMA PA Unavailable Unavailable CARINA, ZULMA PA Unavailable Unavailable CARINA, ZULMA PA Unavailable Unavailable CARINA, ZULMA PA Unavailable Unavailable CARINA, ZULMA PA Unavailable Unavailable CARINA, ZULMA PA Unavailable Unavailable CARINA, ZULMA PA Unavailable Unavailable CARINA, ZULMA PA Unavailable Unavailable CARINA, ZULMA PA Unavailable Unavailable CARINA, ZULMA PA Unavailable Unavailable CARINA, ZULMA PA Unavailable Unavailable CARINA, ZULMA PA Unavailable Unavailable CARINA, ZULMA PA Unavailable Unavailable CARINA, ZULMA PA Unavailable Unavailable CARINA, ZULMA PA Unavailable Unavailable Garcia, M Jessenia PA-C Unavailable Unavailable Garcia, M Jessenia PA-C Unavailable Unavailable Garcia, M Jessenia PA-C Unavailable Unavailable Garcia, M Jessenia PA-C Unavailable Unavailable Garcia, M Jessenia PA-C Unavailable Unavailable Garcia, M Jessenia PA-C Unavailable Unavailable Garcia, M Jessenia PA-C Unavailable Unavailable Garcia, M Jessenia PA-C Unavailable Unavailable Garcia, M Jessenia PA-C Unavailable Unavailable Garcia, M Jessenia PA-C Unavailable Unavailable Garcia, M Jessenia PA-C Unavailable Unavailable Garcia, M Jessenia PA-C Unavailable Unavailable Garcia, M Jessenia PA-C Unavailable Unavailable Garcia, M Jessenia PA-C Unavailable Unavailable Garcia, M Jessenia PA-C Unavailable Unavailable Garcia, M Jessenia PA-C Unavailable Unavailable Garcia, M Jessenia PA-C Unavailable Unavailable Garcia, M Jessenia PA-C Unavailable Unavailable Garcia, M Jessenia PA-C Unavailable Unavailable Garcia, M Jessenia PA-C Unavailable Unavailable Garcia, M Jessenia PA-C Unavailable Unavailable Garcia, M Jessenia PA-C Unavailable Unavailable Garcia, M Jessenia PA-C Unavailable Unavailable Garcia, M Jessenia PA-C Unavailable Unavailable Garcia, M Jessenia PA-C Unavailable Unavailable Garcia, M Jessenia PA-C Unavailable Unavailable Garcia, M Jessenia PA-C Unavailable Unavailable Garcia, M Jessenia PA-C Unavailable Unavailable Garcia, M Jessenia PA-C Unavailable Unavailable Garcia, M Jessenia PA-C Unavailable Unavailable Agrcia, M Jessenia PA-C Unavailable Unavailable Garcia, M Jessenia PA-C Unavailable Unavailable Garcia, M Jessenia PA-C Unavailable Unavailable Re-disclosure Warning The records that you are about to access may contain information from federally-assisted alcohol or drug abuse programs. If such information is present, then the following federally mandated warning applies: This information has been disclosed to you from records protected by federal confidentiality rules (42 CFR part 2). The federal rules prohibit you from making any further disclosure of this information unless further disclosure is expressly permitted by the written consent of the person to whom it pertains or as otherwise permitted by 42 CFR part 2. A general authorization for the release of medical or other information is NOT sufficient for this purpose. The Federal rules restrict any use of the information to criminally investigate or prosecute any alcohol or drug abuse patient.The records that you are about to access may contain highly sensitive health information, the redisclosure of which is protected by Article 27-F of the [facility] Public Health law. If you continue you may have access to information: Regarding HIV / AIDS; Provided by facilities licensed or operated by the [facility] Office of Mental Health; or Provided by the [facility] Office for People With Developmental Disabilities. If such information is present, then the following [facility] mandated warning applies: This information has been disclosed to you from confidential records which are protected by state law. State law prohibits you from making any further disclosure of this information without the specific written consent of the person to whom it pertains, or as otherwise permitted by law. Any unauthorized further disclosure in violation of state law may result in a fine or prison sentence or both. A general authorization for the release of medical or other information is NOT sufficient authorization for further disc losure. Allergies and Adverse Reactions Type Description Substance Reaction Status Data Source(s ) Drug allergy [facility] DR[facility] IN [facility] CLASS CONTRAST MEDIA, IODINE RELATED CONTRAST MEDIA, I ODINE RELATED ANAPHYLAXIS [facility] BRANDNAME TORADOL TORADOL GI bleeding [facility] BRANDNAME PHENERGAN PHENERGAN ANXIETY [facility] BRANDNAME [facility] BRANDNAME DARVOCET-N 100 DARVOCET-N 100 ANAPHYLAXIS [facility] Drug allergy CODEINE CODEINE ITCHING [facility] Drug allergy HYDRALAZINE HYDRALAZINE UNSURE [facility] CLASS SULFA (sulfonamide) SULFA (sulfonamide) HIVES [facility] CLASS PCN (penicillin) PCN (penicillin) ANAPHYLAXIS [facility] Drug allergy Nitro-Dur Drug allergy increased HR Active eCW[facility] ([facility]) ketorolac Ketorolac Tromethamine Ketorolac Gi Bleed Active eC W1 ([facility]) Drug allergy atropine / hyoscyamine / phenoba rbital / scopolamine HIves Active eCW1 ([facility]) Drug allergy Phenergan Promethazine Agitation Active eCW1 ([facility]) Drug allergy Soma Carisoprodol hands itch Active eCW1 ([facility]) Drug allergy Codeine Phosphate Drug allergy Hives Active eCW 1 ([facility]) Drug allergy Vancomycin HCl Vancomycin Hives Active eCW1 ([facility]) Vicodin Vicodin Vicodin Agitation Active eCW1 ([facility]) IVP Dye IVP Dye IVP Dye Anaphylaxis Active eCW1 ([facility]) Family History Family Member Name Family Member Gender Family Member Status Date o f Status Description Data Source(s) [facility] Encounters Encounter Providers Location Date Indications Data Source(s ) Recurring Patient Referrer: José Miguel Jacob MD 05/06/2020 10: 25:41 AM [facility] Spine [facility] Recurring Patient Referrer: José Miguel Jacob MD 05/06/2020 10: 24:14 AM [facility] Recurring Patient Referrer: José Miguel Jacob MD 05/05/2020 12: 59:37 PM EST [place] [facility] Unknown [address] [facility] [place] [address] 04/16/2020 12:00:00 AM EST eCW1 ([facility]) Unknown [address] [facility] [place] [address] 04/14/2020 12:00:00 AM EST eCW1 ([facility]) Unknown [address] [facility] [place] [address] 04/13/2020 12:00:00 AM EST [facility] [place] [address] [facility] [address] 04/13/2020 12:00:00 AM EST [facility] TeleMedicine New Pt. Level 4 [address] [place] [address] 03/23/2020 12:00:00 AM EST eCW1 ([facility]) [place] [address] [address] [address] 03/22/2020 12:00:00 AM EST [facility]CW1 [facility]) Outpatient Attender: Jessenia RAMIREZCConsultant: SIMEON MCGRAW MD 02/14/2020 02:59:00 PM EST - 02/14/2020 02:59:00 PM EST [facility] [address] [facility] [place] [address] 02/11/2020 12:00:00 AM EST eCW1 ([facility]) Outpatient Attender: Jessenia RAMIREZCConsultant: SIMEON MCGRAW MD 01/16/2020 07:09:00 AM EDT - 01/16/2020 07:09:00 AM EDT [facility] Outpatient Attender: Jessenia Garcia PA-C Family Practice 12/10 09:00:00 AM EDT [facility] ([facility] Outpatient Attender: Jessenia ZAVALAonsultant: SIMEON MCGRAW MD 12/30/2019 08:44:00 AM EDT - 12/30/2019 08:44:00 AM EDT [facility] Outpatient Attender: ZULMA paz 12/23/2019 05:25:00 PM EDT [facility] ([facility]) Outpatient Attender: Jessenia ZAVALAonsultant: SIMEON MCGRAW MD 10/15/2019 08:37:00 AM EDT - 10/15/2019 08:37:00 AM EDT [facility] [place] [address] [address] 09/19/2019 12:00:00 AM EDT [facility] [address] [address] 09/03/2019 12:00:00 AM EDT eCW1 ([facility]) [facility] [place] [address] [address] 09/03/2019 12:00:00 AM EDT [facility]CW1 ([facility] [address] [address] 08/27/2019 12:00:00 AM EDT [facility]CW1 ([facility] [address] [facility] [address] 08/15/2019 12:00:00 AM EDT [facility] [address] [facility] [address] 08/13/2019 12:00:00 AM EDT [facility]CW1 ([facility] [address] [facility] [address] 08/02/2019 12:00:00 AM EDT eCW1 ([facility] [address] [facility] [address] 07/23/2019 12:00:00 AM EDT [facility]CW1 [facility] [address] [address] 07/23/2019 12:00:00 AM EDT eCW1 ([facility] [address] [address] 07/19/2019 12:00:00 AM EDT [facility]CW1 ([facility] [address] [facility] [address] 06/24/2019 12:00:00 AM EDT eCW1 ([facility] [address] [address] 06/19/2019 12:00:00 AM EDT eCW1 ([facility]) [facility] [address] [facility] [address] 06/11/2019 12:00:00 AM EST eCW1 ([facility]) [facility] [address] [facility] [place] [address] 06/04/2019 12:00:00 AM EST eCW1 ([facility]) [facility] [address] [facility] [address] 04/23/2019 12:00:00 AM EST eCW1 ([facility]) Medications Medication Brand Name Start Date Product Form Dose Route Admi nistrative Instructions Pharmacy Instructions Status Indications Reaction Description Data Source(s) doxycycline hyclate 100 MG Oral Tablet Doxycycline Hyclate 1 04/29/2019 12:00:00 AM EST ORAL active MEDENT ([facility]) Medical Marijuana 01/14/2020 12:00:00 AM EDT active MEDENT ([facility]) Cholecalciferol 80128 UNT Oral Tablet Vitamin D3 Ultra Poten cy 01/02/2020 12:00:00 AM EDT ORAL active M EDENT ([facility]) Famotidine 20 MG Oral Tablet Famotidine 12/30/2019 12:00:00 AM EDT ORAL active MEDENT ([facility]) Doxycycline Monohydrate 100 MG Oral Tablet Doxycycline Monoh ydrate 12/23/2019 12:00:00 AM EDT ORAL active M EDENT ([facility]) 0.3 ML Epinephrine 1 MG/ML Auto-Injector [Epipen] Epipen 2-P ak 10/18/2019 12:00:00 AM EDT active M EDENT ([facility]) Lorazepam 1 MG Oral Tablet [Ativan] Ativan 1 MG Ativan 1 MG 08/13/2019 12:00:00 AM EDT active 1 tablet at bedti me as needed eCW1 ([facility]) Lorazepam 1 MG Oral Tablet [Ativan] Ativan 1 MG Ativan 1 MG 08/13/2019 12:00:00 AM EDT 1.0 {tablet_at_bedtime_as_needed} active Ativan 1 MG eCW1 ([facility]) Lorazepam 1 MG Oral Tablet [Ativan] Ativan 1 MG Ativan 1 MG 08/13/2019 12:00:00 AM EDT active 1 tablet at bedti me as needed eCW1 ([facility]) Insurance Providers Payer name Policy type / Coverage type Policy ID Covered constitution party ID Covered constitution party's relationship to king Policy King Plan Information MEDICARE COMPLETE [id number] SP [id number] [facility] Medicare Complete F [id number] SELF [id number] MEDICARE COMPLETE [id number] SP [id number] MEDICARE COMPLETE-C O [id number] S [id number] [facility] [place] [id number] 18 [id number] [facility] [id number] 18 [id number] [facility] [place] [id number] 18 [id number] HUMANA GOLD [id number] SP [id number] HUMANA GOLD [id number] SP [id number] [place]UM[place] 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 [id number] [facility]-Medicare Part B [id number] ANSI-Commercial [id number] ANSI-Commercial [id number] ANS-Medicare Part B [id number] ANSI-Commercial [id number] ANSI-Commercial [id number] ANSI-Medicare Part B [id number] ANSI-Commercial [id number] ANSI-Commercial [id number] [facility] [id number] ANSI-Commercial [id number] ANSI-Commercial [id number] ANSI-Commercial [id number] ANSI-Commercial [id number] ANSI-Commercial [id number] ANSI-Commercial [id number] ANSI-Commercial [id number] BCBS [place] PPO 302/307 [id number] SP [id number] ANSI-Commercial [id number] ANSI-Commercial [id number] ANSI-Commercial [id number] ANSI-Commercial [id number] ANSI-Commercial [id number]-[id number] ANSI-Commercial [id number]-[id number] ANSI-Commercial [id number] ANSI-Commercial [id number]-[id number]-[id number] ANSI-Commercial [id number] ANSI-Commercial [id number] ANSI-Commercial [id number]-[id number]-[id number] ANSI-Commercial [id number] ANSI-Commercial [id number] ANSI-Commercial [id number] ANSI-Commercial [id number]-[id number] ANSI-Commercial [id number]-[id number] ANSI-Commercial [id number] ANSI-Commercial [id number]-[id number]-[id number] ANSI-Commercial [id number] ANSI-Commercial [id number]-[id number] ANSI-Commercial [id number] ANSI-Commercial [id number] ANSI-Medicare Part B [id number] ANSI-Medicare Part B [id number] [place] Medigap Part B [id number] Self [id number] Medicare Dme Supplies Medigap Part B [id number] Self [id number] Medicare [facility] Medigap Part B [id number] Self [id number] Blue Shield MCR Advantage Commercial [id number] Self [id number] Medicaid [place] Medigap Part B [id number] Self [id number] ANSI-Medicare Part B [id number] ANSI-Medicare Part B [id number] ANSI-Medicare Part B [id number] ANSI-Medicare Part B [id number] SELF PAY ONLY SP MEDICARE BLUE PPO 306 [id number] SP [id number] BS [place] Medigap Part B [id number] Self [id number] Medicare Dme Supplies Medigap Part B [id number] Self [id number] [place] Part [place] [id number] Self [id number] Blue Shield MCR Advantage Commercial [id number] Self [id number] BS [place] Medigap Part B [id number] Self [id number] Medicare Dme Supplies Medigap Part B [id number] Self [id number] [place] B [id number] Self [id number] Blue Shield MCR Advantage Commercial [id number] Self [id number] BS [place] Medigap Part B [id number] Self [id number] Medicare Dme Supplies Medigap Part B [id number] Self [id number] [place] B [id number] Self [id number] Blue Shield MCR Advantage Commercial [id number] Self [id number] BS [place] Med[place] Part B [id number] Self [id number] Medicare Dme Supplies Medigap Part B [id number] Self [id number] [place] Med[place]ap Part B [id number] Self [id number] Blue Shield MCR Advantage Commercial [id number] Self [id number] BS [place] Medigap Part B [id number] Self [id number] Medicare Dme Supplies Medigap Part B [id number] Self [id number] [place] Med[place]ap Part B [id number] Self [id number] Blue Shield MCR Advantage Commercial [id number] Self [id number] BS [place] Medigap Part B [id number] Self [id number] Medicare Dme Supplies Medigap Part B [id number] Self [id number] [place] Medigap Part B [id number] Self [id number] Blue Shield MCR Advantage Commercial [id number] Self [id number] EXCELLUS BCBS B [id number] S VYM BLUE CROSS BLUE SHIELD MCR OP [id number] 18 [id number] BLUE CROSS BLUE SHIELD -O/P [id number] 18 [id number] BS Medicare Blue Ppo/Hmo Commercial Self EXCELLUS BCBS B [id number] S [id number] BLUE CROSS -O/P [id number] 18 [id number] EXCELLUS BLUE CROSS BLUE SHIEL -O/P [id number] 1 8 [id number] [place] PPO 302/[phone] [id number] SP [id number] EXCELLUS H [id number] Self [id number] [place] PPO [phone] [id number] HU2 [id number] EXCELLUS MEDICARE BLUE PPO G [id number] Self [id number] BLUE CROSS BLUE SHIELD-O/P [id number] 01 [id number] MEDICARE BLUEENHANCED-O/P [id number] 18 [id number] BLUE CROSS O [id number] SP [id number] EXCELLUS BCBS O [id number] S [id number] EXCELLUS BCBS O [id number] S [id number] EXCELLUS MEDICARE BLUE PPO G [id number] Self [id number] BCBS HMO [place] O [id number] U [id number] BCBS MCARE BLUE PPO O [id number] S [id number] BLUE CROSS BLUE SHIELD-O/P [id number] 18 [id number] BLUE CROSS BLUE SHIELD-O/P [id number] 18 [id number] MEDICARE BLUE PPO 306 [id number] HU2 [id number] HMO BLUE [id number] HU2 [id number] [facility] BLUE SHIEL -O/P [id number] 1 [id number] Problems, Conditions, and Diagnoses Code Display Name Description Problem Type Effective Dates Data Source(s) 74147379 Multiple sclerosis Multiple sclerosis Problem 10/2019 12:00:00 AM EDT [facility] ([facility]) [id number] Chronic pain syndrome Chronic pain syndrome Problem 10/15/2019 12:00:00 AM EDT [facility] ([facility]) [id number] Myelitis Myelitis Problem 10/15/2019 12:00:00 AM ED T [facility] ([facility]) [id number] Hypothyroidism Hypothyroidism Problem 10/15/2019 12:00: 00 AM EDT [facility] ([facility]) 58689970 Essential hypertension Essential hypertension Problem 10/15/2019 12:00:00 AM EDT [facility] ([facility]) [id number] Recurrent major depressive episodes Recu rrent major depressive episodes Problem 10/15/2019 12:00:00 AM EDT [facility] ([facility]) [id number] Anxiety state Anxiety state Problem 10/15/2019 12:00:00 AM EDT [facility] ([facility]) [id number] Edema Edema Problem 10/15/2019 12:00:00 AM ED T [facility] ([facility]) 69401602 Asthma without status asthmaticus Asthma without status asthmaticus Problem 10/15/2019 12:00:00 AM EDT [facility] ([facility]) [id number] Tobacco user Tobacco user Problem 10/15/2019 12:00:00 A M EDT [facility] ([facility]) R911 Solitary pulmonary nodule Solitary pulmonary nodule Di agnosis 02/14/2020 02:59:00 PM EST [facility] R5383 Other fatigue Other fatigue Diagnosis 02/14/2020 02:59:00 PM EST [facility] J189 Pneumonia, unspecified organism Pneumonia, unspecified organism Diagnosis 02/14/2020 02:59:00 PM EST [facility] Z0289 Encounter for other administrative exami nations Encounter for other administrative examinations Diagnosis 01/16/2020 07:09:00 AM EDT [facility] L0390 Cellulitis, unspecified Cellulitis, unspecified Diagno sis 01/16/2020 07:09:00 AM EDT [facility] G894 Chronic pain syndrome Chronic pain syndrome Diagnosis 12/30/2019 08:44:00 AM EDT [facility] I10 Essential (primary) hypertension Essential (primary) h ypertension Diagnosis 12/30/2019 08:44:00 AM EDT [facility] E039 Hypothyroidism, unspecified Hypothyroidism, unspecifie d Diagnosis 12/30/2019 08:44:00 AM EDT [facility] F419 Anxiety disorder, unspecified Anxiety disorder, unspec ified Diagnosis 12/30/2019 08:44:00 AM EDT [facility] F339 Major depressive disorder, recurrent, un specified Major depressive disorder, recurrent, unspecified Diagnosis 12/30/2019 08:44:00 AM EDT [facility] R2990 Unspecified symptoms and signs involving the nervous system Unspecified symptoms and signs involving the nervous system Diagnosis 2019 08:44:00 AM EDT [facility] M2550 Pain in unspecified joint Pain in unspecified joint Di agnosis 12/30/2019 08:44:00 AM EDT [facility] G35 Multiple sclerosis Multiple sclerosis Diagnosis 0 08:44:00 AM EDT [facility] L04269 Cellulitis of left lower limb Cellulitis of left lower limb Diagnosis 12/30/2019 08:44:00 AM EDT [facility] W91062 Nicotine dependence, cigarettes, uncompl icated Nicotine dependence, cigarettes, uncomplicated Diagnosis 10/15/2019 08:37:00 AM EDT [facility] V58093 Unspecified asthma, uncomplicated Unspecified as thma, uncomplicated Diagnosis 10/15/2019 08:37:00 AM EDT [facility] R600 Localized edema Localized edema Diagnosis 10/15/2019 08:3 7:00 AM EDT [facility] G0489 Other myelitis Other myelitis Diagnosis 10/15/2019 08:37: 00 AM EDT [facility] Surgeries/Procedures Procedure Description Date Indications Data Source(s) Brief Emotional/Behav Assessment W/ Scoring Doc Per Standard Inst 10/15/2019 12:00:00 AM EDT [facility] ([facility]) Admin Patient Focused Health Risk Assessment Instrument 10/15/2019 12:00:00 AM EDT [facility] ([facility]) TeleMedicine Est. Pt. Level 3 08/13/2019 12:00:00 AM E DT eCW1 ([facility]) Results ID Date Data Source MICHELLE TITER & PATTERN 04/06/2020 12:00:00 AM EST eCW1 ([facility]) Name Value Range Interpretation Code Description Data Dalila rce(s) Supporting Document(s) Negative . eCW1 ([facility]) ID Date Data Source QUANTIFERON TB GOLD TEST 04/06/2020 12:00:00 AM EST eCW1 ([facility]) Name Value Range Interpretation Code Description Data Dalila rce(s) Supporting Document(s) eCW1 ([facility]) ID Date Data Source CYCLIC CITRULLINATED PEPTIDE 04/06/2020 12:00:00 AM EST eCW1 ([facility]) Name Value Range Interpretation Code Description Data Dalila rce(s) Supporting Document(s) 5 0-19 eCW1 ([facility]) ID Date Data Source RHEUMATOID FACTOR QUANT 04/06/2020 12:00:00 AM EST eCW1 ([facility]placed by [facility]) Name Value Range Interpretation Code Description Data Dalila rce(s) Supporting Document(s) < 10.0 <15.0 eCW1 ([facility]) ID Date Data Source ERYTHROCYTE SEDIMENTATION RATE 04/06/2020 12:00:00 AM EST eC W1 ([facility]) Name Value Range Interpretation Code Description Data Dalila rce(s) Supporting Document(s) 35 0-30 eCW1 ([facility]) ID Date Data Source C REACTIVE PROTEIN QUANTITATIV (At [facility]) 04/06/2020 12:00 :00 AM EST eCW1 ([facility]) Name Value Range Interpretation Code Description Data Dalila rce(s) Supporting Document(s) 1.85 0.00-0.30 eCW1 ([facility]) ID Date Data Source CBC with Differential 04/06/2020 12:00:00 AM EST eCW1 ([facility]) Name Value Range Interpretation Code Description Data Dalila rce(s) Supporting Document(s) 10.1 4.0-10.0 eCW1 ([facility]) 40.8 36.0-47.0 eCW1 ([facility]) 4.72 4.00-5.40 eCW1 ([facility]) 86.4 80.0-96.0 eCW1 ([facility]) 13.6 12.0-15.5 eCW1 ([facility]) 311 150-450 eCW1 ([facility]) 33.3 32.0-36.5 eCW1 ([facility]) 13.1 11.5-14.5 eCW1 ([facility]) 28.8 27.0-33.0 eCW1 ([facility]) 60.8 36.0-66.0 eCW1 ([facility]) 0.7 0.0-1.0 eCW1 ([facility]) 7.7 0.0-3.0 eCW1 ([facility]) 6.3 0.0-5.0 eCW1 ([facility]) 24.1 24.0-44.0 eCW1 ([facility]) 0.1 0.0-0.2 eCW1 ([facility]) 6.1 1.5-8.5 eCW1 ([facility]) 0.8 0.0-0.5 eCW1 ([facility]) 2.4 1.5-5.0 eCW1 ([facility]) 0.6 0.0-0.8 eCW1 ([facility]) ID Date Data Source [id number] 02/24/2020 07:47:00 AM YENI MOELLER ([facility]) Name Value Range Interpretation Code Description Data Dalila rce(s) Supporting Document(s) Hemoglobin A1c/Hemoglobin.total in Blood Laboratory test result [facility] ([facility]) Thyrotropin [Units/volume] in Serum or Plasma Laboratory test result [facility] ([facility]) Thyroxine (T4) free [Mass/volume] in Serum or Plasma Laboratory oliver t result [facility] ([facility]) ID Date Data Source [id number] 02/24/2020 07:47:00 AM EST [facility] ([facility]) Name Value Range Interpretation Code Description Data Dalila rce(s) Supporting Document(s) Color, Urine Laboratory test result Normal (applies to non -numeric results) [facility] ([facility]) PH,Urine 5.0 units 5.0-9.0 Normal (applies to non-numeric resul ts) [facility] ([facility]) Appearance, Urine Laboratory test result Above high normal [facility] ([facility]) Protein, Urine Auto Laboratory test result Above high norm al [facility] ([facility]) Specific [place] Urine Auto 1.028 1.002-1.035 Norm al (applies to non-numeric results) [facility] ([facility]) Glucose, Urine (Ua) Auto Laboratory test result Normal (applies to non-numeric results) [facility] ([facility]) Bilirubin, Urine Auto Laboratory test result Nor mal (applies to non-numeric results) [facility] ([facility]) Urobilinogen, Urine Auto 0.2 mg/dL 0.0-2.0 Normal (applies to non-numeric results) [facility] ([facility]) Ketone, Urine Auto Laboratory test result Normal (applies to non-numeric results) [facility] ([facility]) Blood, Urine Blood Laboratory test result Normal (applies to non-numeric results) [facility] ([facility]) Nitrite, Urine Auto Laboratory test result Jessa l (applies to non-numeric results) [facility] ([facility]) Leukocyte Esterase, Urine Auto Laboratory test result Abov e high normal [facility] ([facility]) Squamous Epithelial Cell Ur AU 10 /HPF 0-6 N ormal (applies to non-numeric results) [facility] ([facility]) RBC, Urine Auto 10 /HPF 0-3 Above high normal [facility] ([facility]) Bacteria, Urine Auto Laboratory test result Above high nor mal [facility] ([facility]) WBC, Urine Auto 25 /HPF 0-3 Above high normal [facility] ([facility]) Calcium Oxalate Crystals Laboratory test result Normal (applies to non-numeric results) [facility] ([facility]) Mucus, Urine Laboratory test result Normal (applies to non -numeric results) [facility] ([facility]) Hyaline Cast, Urine Auto 0 /LPF 0-1 Normal (applies to non -numeric results) [facility] ([facility]) ID Date Data Source [id number] 02/24/2020 07:47:00 AM EST [facility] ([facility]) Name Value Range Interpretation Code Description Data Dalila rce(s) Supporting Document(s) Calcidiol [Mass/volume] in Serum or Plasma Laboratory test result [facility] ([facility]) ID Date Data Source [id number] 02/24/2020 07:42:00 AM EST [facility] ([facility]) Name Value Range Interpretation Code Description Data Dalila rce(s) Supporting Document(s) White Blood Count 10.1 10 4.0-10.0 Above high normal [facility] Hematocrit 42.0 % 36.0-47.0 Normal (applies to non-numeric resul ts) [facility] ([facility]) Hemoglobin 13.9 g/dL 12.0-15.5 Normal (applies to non-numeric resul ts) [facility]) Red Blood Count 4.85 10 4.00-5.40 Normal (applies to non-numeric results) [facility] ([facility]) Mean Corpuscular Volume 86.6 fl 80.0-96.0 Normal ( applies to non-numeric results) [facility] Mean Corpuscular Hemoglobin 28.7 pg 27.0-33.0 Norm al (applies to non-numeric results) [facility] ([facility]) Platelet Count, Automated 328 10 150-450 Normal (applies to non-numeric results) [facility]) Mean Corpuscular HGB Conc 33.1 g/dL 32.0-36.5 Normal (applies to non-numeric results) [facility] ([facility]) Red Cell Distribution Width 12.9 % 11.5-14.5 Norm al (applies to non-numeric results) [facility] ([facility]) Lymph % 28.4 % 24.0-44.0 Normal (applies to non-numeric resul ts) [facility] ([facility]) [place] % 6.3 % 0.0-5.0 Above high normal [facility] ([facility]) Neutrophils % 55.7 % 36.0-66.0 Normal (applies to non-numeric re sults) [facility] ([facility]) Immature Granulocyte % 0.3 % 0-3.0 Normal (applies to non-n umeric results) [facility] ([facility]) Baso % 0.7 % 0.0-1.0 Normal (applies to non-numeric resul ts) [facility] ([facility]) Eos % 8.6 % 0.0-3.0 Above high normal [facility] ([facility]) Lymph # 2.9 10 1.5-5.0 Normal (applies to non-numeric resul ts) [facility] ([facility]) Neutrophils # 5.6 10 1.5-8.5 Normal (applies to non-numeric re sults) [facility] ([facility]) Nucleated Red Blood Cell % 0.0 % 0-0 Normal (applies to n on-numeric results) [facility] ([facility]) Eos # 0.9 10 0.0-0.5 Above high normal [facility] ([facility]) Baso # 0.1 10 0.0-0.2 Normal (applies to non-numeric resul ts) [facility] ([facility]) [place]ck[place]ley # 0.6 10 0.0-0.8 Normal (applies to non-numeric resul ts) [facility] ([facility]) ID Date Data Source [id number] 02/24/2020 07:42:00 AM EST [facility] ([facility]) Name Value Range Interpretation Code Description Data Dalila rce(s) Supporting Document(s) Estimated Average Glucose 120 mg/dL 60-110 Above high normal [facility] ([facility]) Hemoglobin A1c 5.8 % Normal (applies to non-numeric r esults) [facility] ([facility]) <content>REFERENCE RANGES:</content><br/ ><content></content>
<content><=5.6% NORMAL</content>
<content>5.7-6.4% SUGGESTS IMPAIRED GLUCOSE METABOLISM/PREDIABETIC</content>
<content>>= 6.5% ABNORMAL</content>
<content></content> ID Date Data Source [id number] 02/24/2020 07:42:00 AM EST [facility] ([facility]) Name Value Range Interpretation Code Description Data Adlila rce(s) Supporting Document(s) Glucose, Fasting 74 mg/dL 70-100 Normal (applies to non-numeric results) [facility] ([facility]) Blood Urea Nitrogen 14 mg/dL 7-18 Normal (applies to non-nume claire results) [facility] ([facility]) Glomerular Filtration Rate 54.0 Normal (applies to n on-numeric results) [facility] ([facility]) <content>Units are mL/min/1.73 m2</content>
<content></content>
<content>Chronic Kidney Disease Staging per NKF:</content>
<content></content>
<content>Stage I & II GFR >=60 Normal to Mildly Decreased</content>
<content>Stage III GFR 30- 59 Moderately Decreased</content>
<content>Stage IV GFR 15-29 Severely Decreased</content>
<content>Stage V GFR <15 Very Little GFR Left</content>
<content>ESRD GFR <15 on [employer]IL [employer]ATMENT OPERATOR</content>
<content></content> Creatinine For GFR 1.12 mg/dL 0.55-1.30 Normal (applies to non -numeric results) [facility] ([facility]) Sodium Level 140 meq/L 136-145 Normal (applies to non-numeric res ults) [facility] ([facility]) Potassium Serum 4.2 meq/L 3.5-5.1 Normal (applies to non-numeric results) [facility] ([facility]) Chloride Level 107 meq/L 98-107 Normal (applies to non-numeric r esults) [facility] ([facility]) Carbon Dioxide Level 29 meq/L 21-32 Normal (applies to non-num tanner results) [facility] ([facility]) Anion Gap 4 meq/L 8-16 Below low normal [facility] ( [facility]) Calcium Level 9.2 mg/dL 8.5-10.1 Normal (applies to non-numeric re sults) [facility] ([facility]) Ast/Sgot 12 U/L 7-37 Normal (applies to non-numeric resul ts) [facility] ([facility]) Alt/SGPT 17 U/L 12-78 Normal (applies to non-numeric resul ts) [facility] ([facility]) Alkaline Phosphatase 106 U/L 45-117 Normal (applies to non-num tanner results) [facility] ([facility]) Bilirubin,Total 0.5 mg/dL 0.2-1.0 Normal (applies to non-numeric results) [facility] ([facility]) Albumin 3.1 GM/DL 3.2-5.2 Below low normal [facility] Albumin/Globulin Ratio 0.8 1.2-2.2 Below low normal [facility] Total Protein 7.1 GM/DL 6.4-8.2 Normal (applies to non-numeric re sults) [facility] ([facility]) ID Date Data Source [id number] 02/24/2020 07:42:00 AM EST [facility] ([facility]) Name Value Range Interpretation Code Description Data Dalila rce(s) Supporting Document(s) Triglycerides Level 120 mg/dL Normal (applies to non-nume claire results) [facility] ([facility]) Cholesterol Level 186 mg/dL Normal (applies to non-numeri c results) [facility] ([facility]) HDL Cholesterol 51 mg/dL Normal (applies to non-numeric results) [facility] ([facility]) LDL Cholesterol 111 mg/dL Above high normal [facility] ([facility]) Non-HDL-C 135 mg/dL Normal (applies to non-numeric resul ts) [facility] ([facility]) Cholesterol Risk Ratio 3.647 Normal (applies to non-n umeric results) [facility] ([facility]) ID Date Data Source [id number] 02/24/2020 07:42:00 AM EST [facility] ([facility]) Name Value Range Interpretation Code Description Data Dalila rce(s) Supporting Document(s) Free T4 1.23 ng/dL 0.76-1.46 Normal (applies to non-numeric resul ts) [facility] ([facility]) Thyroid Stimulating Hormone 2.180 uIU/ML 0.358-3.740 Norm al (applies to non- numeric results) [facility] ([facility]) ID Date Data Source [id number] 02/24/2020 07:42:00 AM EST [facility] ([facility]) Name Value Range Interpretation Code Description Data Dalila rce(s) Supporting Document(s) Calcidiol [Mass/volume] in Serum or Plasma 31.5 ng/mL 30.0- 100.0 Normal (applies to non-numeric results) [facility]) <content>note:<nlbl:demographic_changed></content>
<content>note:<nlbl:demog raphic_changed></content>
<content></content> ID Date Data Source [id number] 02/24/2020 07:42:00 AM EST [facility] ([facility]) Name Value Range Interpretation Code Description Data Dalila rce(s) Supporting Document(s) Lyme Disease IgM Ab Quantitati 3.13 index 0.00-0.79 Above high jessa l [facility] ([facility]) <content>Negative <0.80</content >
<content>Equivocal 0.80 - 1.19</content>
<content>Positive >1.19</content>
<content>.</content>
<content>IgM levels may peak at 3-6 weeks post infection, then</content>
<content>gradually decline.</content>
<content></content> Lyme Disease IgG Ab 93 kDa Ban Laboratory test result Normal (applies to non- numeric results) [facility] ([facility]) Lyme Disease IgG/IgM Antibodie 1.26 ISR 0.00-0.90 Above high jessa l [facility] ([facility]) <content>Negative <0.91</content >
<content>Equivocal 0.91 - 1.09</content>
<content>Positive >1.09</content>
<content></content> Lyme Disease IgG Ab 66 kDa Ban Laboratory test result Normal (applies to non- numeric results) [facility] ([facility]) Lyme Disease IgG Ab 45 kDa Ban Laboratory test result Normal (applies to non- numeric results) [facility] ([facility]) Lyme Disease IgG Ab 58 kDa Ban Laboratory test result Normal (applies to non- numeric results) [facility] ([facility]) Lyme Disease IgG Ab 39 kDa Ban Laboratory test result Abnormal (applies to non-numeric results) [facility] ([facility]) Lyme Disease IgG Ab 41 kDa Ban Laboratory test result Abnormal (applies to non-numeric results) [facility] ([facility]) Lyme Disease IgG Ab 28 kDa Ban Laboratory test result Normal (applies to non- numeric results) [facility] ([facility]) Lyme Disease IgG Ab 23 kDa Ban Laboratory test result Abnormal (applies to non-numeric results) [facility] ([facility]) Lyme Disease IgG Ab 30 kDa Ban Laboratory test result Normal (applies to non- numeric results) [facility] ([facility]) Lyme Disease IgG Ab 18 kDa Ban Laboratory test result Abnormal (applies to non-numeric results) [facility] ([facility]) Lyme Disease IgM Ab 41 kDa Ban Laboratory test result Normal (applies to non- numeric results) [facility] ([facility]) Lyme Disease IgG West Blot Int Laboratory test result Normal (applies to non- numeric results) [facility] ([facility]) Positive: 5 of the following Borrelia-specific bands: 18,23,28,30,39,41,45,58, 66, and 93. Negative: No bands or banding patterns which do not meet positive criteria. Lyme Disease IgM Ab 23 kDa Ban Laboratory test result Abnormal (applies to non-numeric results) [facility] ([facility]) Lyme Disease IgM Ab 39 kDa Ban Laboratory test result Abnormal (applies to non-numeric results) [facility] ([facility]) Lyme Disease IgM West Blot Int Laboratory test result Abnormal (applies to non-numeric results) [facility] ([facility]) Note: An equivocal or positive EIA resul t followed by a negative Line Blot result is considered NEGATIVE. An equivocal or positive EIA result followed by a positive Line Blot is considered POSITIVE by the CDC. . Positive: 2 of the following bands: 23,39 or 41 Negative: No bands or banding patterns which do not meet positive criteria. Criteria for positivity are those recommended by CDC/ASTPHLD. p23=Osp C, o93=dvdtsnpiw . Note: Sera from individuals with the following may cross react in the Lyme Line Blot assays: other spirochetal diseases (periodontal disease, leptospirosis, rel apsing fever, yaws, and pinta); connective autoimmune (Rheumatoid Arthritis and Systemic Lupus Erythematosus and also individuals with Antinuclear Antibody); other infections ([place] Spotted Fever; Juliano-Leone Virus, and Cytomegalovirus). . . Performed at: RN - [facility] [place] [id number] Business Systems Architect: Perla Parker MD, Phone: [phone] ID Date Data Source [id number] 02/20/2020 01:07:00 PM EST [facility] ([facility]) Name Value Range Interpretation Code Description Data Dalila rce(s) Supporting Document(s) CT Thorax W/O Contrast Laboratory test result [facility] ([facility]) ID Date Data Source [id number] 12/30/2019 09:32:00 AM EDT [facility] ([facility]) Name Value Range Interpretation Code Description Data Dalila rce(s) Supporting Document(s) Calcidiol [Mass/volume] in Serum or Plasma 25 ng/mL [facility] ([facility]) Is patient fasting? N ID Date Data Source [id number] 12/30/2019 09:32:00 AM EDT [facility] ([facility]) Name Value Range Interpretation Code Description Data Dalila rce(s) Supporting Document(s) Thyroxine (T4) [Mass/volume] in Serum or Plasma 10.1 ug/dL 4.5-12.5 [facility] ([facility]) Is patient fasting? N Thyroxine (T4) free [Mass/volume] in Serum or Plasma 1.27 ng/dL 0.93- 1.70 [facility] ([facility]) Is patient fasting? N Triiodothyronine (T3) Free [Mass/volume] in Serum or Plasma 3.3 pg/ mL 2.0-4.4 [facility] ([facility]) Is patient fasting? N Thyroperoxidase Ab [Units/volume] in Serum or Plasma 31 IU/ml 0-34 [facility] ([facility]) Is patient fasting? N Thyrotropin [Units/volume] in Serum or Plasma 1.43 uIU/mL 0.47-5.01 [facility] ([facility]) Is patient fasting? N ID Date Data Source [id number] 12/30/2019 09:32:00 AM EDT [facility] ([facility]) Name Value Range Interpretation Code Description Data Dalila e(s) Supporting Document(s) Hemoglobin A1c/Hemoglobin.total in Blood 5.9 % 4.4-6.1 [facility] ([facility]) Is patient fasting? N ID Date Data Source [id number] 12/30/2019 09:32:00 AM EDT [facility] ([facility]) Name Value Range Interpretation Code Description Data Dalila e(s) Supporting Document(s) Sodium 138 meq/L 134-153 [facility] ([facility]) Is patient fasting? N Comprehensive Metabo Laboratory test result [facility] ([facility]) Is patient fasting? N Potassium 4.4 meq/L 3.6-5.0 [facility] ([facility]) Is patient fasting? N Chloride 101 meq/L 98-107 [facility] ([facility]) Is patient fasting? N Co2 28 meq/L 22-30 [facility] ([facility]) Is patient fasting? N Creatinine 1.0 mg/dL 0.7-1.5 [facility] ([facility]) Is patient fasting? N Glucose 116 mg/dL 65-110 Above high normal [facility] ([facility]) Is patient fasting? N BUN 14 mg/dL 7-21 [facility] ([facility]) Is patient fasting? N Albumin 4.1 g/dL 3.9-5.0 [facility] ([facility]) Is patient fasting? N Total Protein 7.4 g/dL 6.3-8.2 [facility] ([facility]) Is patient fasting? N BUN/Creat 14 8-27 [facility] ([facility]) Is patient fasting? N Globulin 3.3 GM/DL 2.4-3.2 Above high normal [facility] ([facility]) Is patient fasting? N A/G Ratio 1.2 0.8-2.0 [facility] ([facility]) Is patient fasting? N Calcium 9.5 mg/dL 8.4-10.2 [facility] ([facility]) Is patient fasting? N Sgot/Ast 16 U/L 5-40 [facility] ([facility]) Is patient fasting? N Total Bili 0.7 mg/dL 0.2-1.3 [facility] ([facility]) Is patient fasting? N Alkaline Phos 97 U/L 38-126 [facility] ([facility]) Is patient fasting? N Anion Gap 9.0 mmol/L 8.0-16.0 [facility] ([facility]) Is patient fasting? N SGPT/Alt 12 U/L 7-56 [facility] ([facility]) Is patient fasting? N Age 54 yrs [facility] ([facility]) Is patient fasting? N Non-Aa GFR Laboratory test result [facility] ([facility]) Is patient fasting? N Afr Amer GFR Laboratory test result [facility] ([facility]) Is patient fasting? N ID Date Data Source [id number] 12/30/2019 09:32:00 AM EDT [facility] ([facility]) Name Value Range Interpretation Code Description Data Dalila rce(s) Supporting Document(s) CBC W/Automated Diff Laboratory test result [facility] ([facility]) Is patient fasting? N WBC 7.1 10^3/uL 4.2-11.0 [facility] ([facility]) Is patient fasting? N Hemoglobin 14.2 g/dL 12.0-16.0 [facility] ([facility]) Is patient fasting? N RBC 4.88 10^6/uL 4.20-5.40 [facility] ([facility]) Is patient fasting? N Hematocrit 42.3 % 37.0-47.0 [facility] ([facility]) Is patient fasting? N MCH 29.1 pg 27.0-34.0 [facility] ([facility]) Is patient fasting? N MCHC 33.6 g/dL 31.0-36.0 [facility] ([facility]) Is patient fasting? N MCV 86.7 fL 81.0-101 [facility] ([facility]) Is patient fasting? N MPV 10.3 fL 7.4-10.4 [facility] ([facility]) Is patient fasting? N RDW 12.5 % 11.5-14.5 [facility] ([facility]) Is patient fasting? N Platelets 307 10^3/uL 150-450 [facility] ([facility]) Is patient fasting? N Lymph 28.6 % 25.0-40.0 [facility] ([facility]) Is patient fasting? N Neut 58.5 % 37.0-80.0 [facility] ([facility]) Is patient fasting? N Eos 4.9 % 0.0-7.0 [facility] ([facility]) Is patient fasting? N Mckinley 6.9 % 3.0-8.0 [facility] ([facility]) Is patient fasting? N Baso 0.8 % 0.0-2.5 [facility] ([facility]) Is patient fasting? N #Neut 4.15 10^3/uL 2.00-6.90 [facility] ([facility]) Is patient fasting? N %NRBC 0.0 % 0.0-0.0 [facility] ([facility]) Is patient fasting? N %Ig 0.3 % 0.0-0.0 Above high normal [facility] ([facility]) Is patient fasting? N #Lymph 2.03 10^3/uL 0.60-3.40 [facility] ([facility]) Is patient fasting? N #Mckinley 0.49 10^3/uL 0.00-0.90 [facility] ([facility]) Is patient fasting? N #Eos 0.35 10^3/uL 0.00-0.70 [facility] ([facility]) Is patient fasting? N #Baso 0.06 10^3/uL 0.00-0.20 [facility] ([facility]) Is patient fasting? N #Ig 0.02 10^3/uL 0.00-0.10 [facility] ([facility]) Is patient fasting? N #NRBC 0.00 10^3/uL 0.00-0.00 [facility] ([facility]) Is patient fasting? N Manual Diff Laboratory test result [facility] ([facility]) Is patient fasting? N RBC Morph Laboratory test result [facility] ([facility]) Is patient fasting? N ID Date Data Source [id number] 01/01/2020 03:07:00 PM EDT [facility] Value Range Interpretation Code Description Data Dalila rce(s) Supporting Document(s) Triiodothyronine (T3) Free [Mass/volume] in Serum or Plasma 3.3 pg/ mL 2.0-4.4 [facility] ID Date Data Source [id number] 01/01/2020 03:07:00 PM EDT [facility] Value Range Interpretation Code Description Data Dalila rce(s) Supporting Document(s) Thyroperoxidase Ab [Units/volume] in Serum or Plasma 31 IU/mL 0-34 [facility] ID Date Data Source [id number] 12/30/2019 03:06:00 PM EDT [facility] Value Range Interpretation Code Description Data Dalila rce(s) Supporting Document(s) Thyroxine (T4) [Mass/volume] in Serum or Plasma 10.1 UG/DL 4.5 - 12.5 [facility] ID Date Data Source [id number] 12/30/2019 03:06:00 PM EDT [facility] Name Value Range Interpretation Code Description Data Dalila rce(s) Supporting Document(s) Calcidiol [Moles/volume] in Serum or Plasma 25 NG/ML [facility] VITAMIN-D(2 5HYDROXY) Deficiency: <=20 ng/ml Insufficiency: 21-29 ng/ml Preferred level: => 30 ng/ml ID Date Data Source [id number] 12/30/2019 03:06:00 PM EDT [facility] Name Value Range Interpretation Code Description Data Dalila rce(s) Supporting Document(s) Thyrotropin [Units/volume] in Serum or Plasma by Detec tion limit <= 0.05 mIU/L 1.43 uIU/mL 0.47 - 5.01 [facility] ID Date Data Source [id number] 12/30/2019 03:06:00 PM EDT [facility] Name Value Range Interpretation Code Description Data Dalila rce(s) Supporting Document(s) Thyroxine (T4) free index in Serum or Plasma by calculation 1.27 NG/DL 0.93 - 1.70 [facility] ID Date Data Source [id number] 12/30/2019 02:40:00 PM EDT [facility] Name Value Range Interpretation Code Description Data Dalila rce(s) Supporting Document(s) COMPREHENSIVE METABOLIC PANEL [facility] COMPREHENSIVE METABOLIC PANEL Sodium [Moles/volume] in Serum or Plasma 138 mEq/L 134 - 153 [facility] Potassium [Moles/volume] in Serum or Plasma 4.4 mEq/L 3.6 - 5.0 [facility] Chloride [Moles/volume] in Serum or Plasma 101 mEq/L 98 - 107 [facility] Carbon dioxide, total [Moles/volume] in Serum or Plasma 28 MEQ/L 22 - 30 [facility] Glucose [Mass/volume] in Serum or Plasma 116 MG/DL 65 - 110 H [facility] BUN 14 MG/DL 7 - [facility] Creat[facility] [Mass/volume] in Serum or Plasma 1.0 MG/DL 0.7 - 1.5 [facility] BUN/CREAT 14 8 - 27 [facility] al Protein [Mass/volume] in Serum or Plasma 7.4 G/DL 6.3 - 8.2 [facility] Albumin [Mass/volume] in Serum or Plasma 4.1 G/DL 3.9 - 5.0 [facility] Globulin [Mass/volume] in Serum by calculation 3.3 GM/DL 2.4 - 3.2 H [facility] A/G RATIO 1.2 0.8 - 2.0 [facility] Calcium [Mass/volume] in Serum or Plasma 9.5 MG/DL 8.4 - 10.2 [facility] Bilirubin.total [Mass/volume] in Serum or Plasma 0.7 MG/DL 0.2 - 1.3 [facility] Alkaline phosphatase [Enzymatic activity/volume] in Serum or Plasma 97 U/L 38 - 126 [facility] Aspartate aminotransferase [Enzymatic activity/volume] in Serum or Plasma 16 U/L 5 - 40 [facility] Alanine aminotransferase [Enzymatic activity/volume] in Seru m or Plasma 12 U/L 7 - 56 [facility] Anion gap 3 in Serum or Plasma 9.0 mmol/L 8.0 - 16.0 [facility] AGE 54 yrs [facility] al NON-AA GFR >60 mL/min [facility] ital AFR AMER GFR >60 mL/min [facility] Male GFR In terprentation 20-49 yrs >60 mL/min Normal 50-59 yrs >56 mL/min Normal 60-69 yrs >49 mL/min Normal 70-79yrs >42 mL/min Normal 80 and above >35 mL/min Normal Female GFR Interpretation 20-39 yrs >60 mL/min Normal 40-49 yrs >58 mL/min Normal 50-59 yrs >51 mL/min Normal 60-69 yrs >45 mL/min Normal 70-79 yrs >39 mL/min Normal 80 and above >32 mL/min Normal ID Date Data Source [id number] 12/30/2019 02:27:00 PM EDT [facility] Name Value Range Interpretation Code Description Data Dalila rce(s) Supporting Document(s) Hemoglobin A1c/Hemoglobin.total in Blood 5.9 % 4.4 - 6.1 [facility] {A1]{HB] ID Date Data Source [id number] 12/30/2019 02:23:00 PM EDT [facility] Name Value Range Interpretation Code Description Data Dalila rce(s) Supporting Document(s) CBC W/AUTOMATED DIFF [facility] COMPLETE BLOOD COUNT Leukocytes [#/volume] in Blood by Automated count 7.1 10^3/uL 4.2 - 1 1.0 [facility] Erythrocytes [#/volume] in Blood by Automated count 4.88 10^6/uL 4. 20 - 5.40 [facility] Hemoglobin [Mass/volume] in Blood 14.2 g/dL 12.0 - 16.0 [facility] Hematocrit [Volume Fraction] of Blood by Automated count 42.3 % 3 7.0 - 47.0 [facility] Erythrocyte mean corpuscular volume [Entitic volume] by Auto mated count 86.7 fL 81.0 - 101 [facility] Erythrocyte mean corpuscular hemoglobin [Entitic mass] by Automated count 29.1 pg 27.0 - 34.0 [facility] Erythrocyte mean corpuscular hemoglobin concentration [Mass/volume] by Automated count 33.6 g/dL 31.0 - 36.0 [facility] Erythrocyte distribution width [Ratio] by Automated count 12.5 % 11.5 - 14.5 [facility] Platelets [#/volume] in Blood by Automated count 307 10^3/uL 150 - 45 0 [facility] Platelet mean volume [Entitic volume] in Blood by Automated count 10.3 fL 7.4 - 10.4 [facility] Neutrophils/100 leukocytes in Blood by Automated count 58.5 % 37. 0 - 80.0 [facility] Lymphocytes/100 leukocytes in Blood by Manual count 28.6 % 25.0 - 40.0 [facility] Monocytes/100 leukocytes in Blood by Automated count 6.9 % 3.0 - 8.0 [facility] Eosinophils/100 leukocytes in Blood by Automated count 4.9 % 0.0 - 7.0 [facility] Basophils/100 leukocytes in Blood by Automated count 0.8 % 0.0 - 2.5 [facility] %IG 0.3 % 0.0 - 0.0 [facility] %NRBC 0.0 % 0.0 - 0.0 [facility] Neutrophils [#/volume] in Blood by Automated count 4.15 10^3/uL 2.00 - 6.90 [facility] Lymphocytes [#/volume] in Blood by Automated count 2.03 10^3/uL 0.60 - 3.40 [facility] Monocytes [#/volume] in Blood by Automated count 0.49 10^3/uL 0.00 - 0.90 [facility] Eosinophils [#/volume] in Blood by Automated count 0.35 10^3/uL 0.00 - 0.70 [facility] Basophils [#/volume] in Blood by Automated count 0.06 10^3/uL 0.00 - 0.20 [facility] #IG 0.02 10^3/uL 0.00 - 0.10 [facility] #NRBC 0.00 10^3/uL 0.00 - 0.00 [facility] MANUAL DIFF NOT INDICATED [facility] RBC MORPH NOT INDICATED [facility] Procedure Social History Code Duration Value Status Description Data Source(s ) Smoking 03/23/2020 12:00:00 AM EST Current Smoker completed Curre nt Smoker eCW1 ([facility]) Smoking 03/23/2020 12:00:00 AM EST Current Smoker completed Curre nt Smoker eCW1 ([facility]) Smoking 03/23/2020 12:00:00 AM EST Current Smoker completed Curre nt Smoker eCW1 ([facility]) Smoking 03/23/2020 12:00:00 AM EST Current Smoker completed Curre nt Smoker eCW1 ([facility]) Smoking 03/23/2020 12:00:00 AM EST Current Smoker completed Curre nt Smoker eCW1 ([facility]) Smoking 03/23/2020 12:00:00 AM EST Current Smoker completed Curre nt Smoker eCW1 ([facility]) Smoking 08/17/2019 12:00:00 AM EDT Current Smoker completed Curre nt Smoker eCW1 ([facility]) Vital Signs ID Date Data Source UNK Name Value Range Interpretation Code Description Data Source(s) Body temperature 97 [degF] 97 [degF] eCW1 ([facility]) Body mass index (BMI) [Ratio] 37.27 kg/m2 37.27 kg/m2 eCW1 ([facility]) Body height 65 [in_i] 65 [in_i] eCW1 ([facility]) Body weight 224 [lb_av] 224 [lb_av] eCW1 ([facility]) Body temperature 97.4 [degF] 97.4 [degF] [facility] ([facility]) Heart rate 87 /min 87 /min [facility] ([facility]) Diastolic blood pressure 82 mm[Hg] 82 mm[Hg] [facility] ([facility]) Systolic blood pressure 122 mm[Hg] 122 mm[Hg] M [facility] ([facility]) Body surface area Derived from formula 2.08 m2 2.08 m2 [facility] ([facility]) Body mass index (BMI) [Ratio] 37.3 kg/m2 37.3 k g/m2 [facility] ([facility]) Body height 65 [in_i] 65 [in_i] [facility] ([facility]) 5'5" Body weight 101.606 kg 101.606 kg [facility] ([facility]) Body weight 224.00 [lb_av] 224.00 [lb_av] [facility] T ([facility]) Oxygen saturation in Arterial blood by Pulse oximetry 98 % 98 % [facility] ([facility]) Respiratory rate 16 /min 16 /min [facility] ( [facility]) Body surface area Derived from formula 2.07 m2 2.07 m2 [facility] ([facility]) Body mass index (BMI) [Ratio] 37.2 kg/m2 37.2 k g/m2 [facility] ([facility]) Body height 65 [in_i] 65 [in_i] [facility] ([facility]) 5'5" Body weight 101.323 kg 101.323 kg [facility] ([facility]) Body weight 223.38 [lb_av] 223.38 [lb_av] [facility] T ([facility]) Oxygen saturation in Arterial blood by Pulse oximetry 97 % 97 % [facility] ([facility]) Respiratory rate 16 /min 16 /min [facility] ( [facility]) Body temperature 97.5 [degF] 97.5 [degF] [facility] ([facility]) Heart rate 77 /min 77 /min [facility] ([facility]) Diastolic blood pressure 80 mm[Hg] 80 mm[Hg] [facility] ([facility]) Systolic blood pressure 130 mm[Hg] 130 mm[Hg] M [facility] ([facility]) Body mass index (BMI) [Ratio] 37.1 kg/m2 37.1 k g/m2 [facility] ([facility], [facility]) Body height 65 [in_i] 65 [in_i] [facility] ([facility], [facility]) 5'5" Body weight 223.00 [lb_av] 223.00 [lb_av] [facility] T ([facility], [facility]) Body temperature 98.3 [degF] 98.3 [degF] [facility] ([facility], [facility]) Oxygen saturation in Arterial blood by Pulse oximetry 97 % 97 % [facility] ([facility], [facility]) Respiratory rate 12 /min 12 /min [facility] ( [facility], [facility]) Heart rate 90 /min 90 /min [facility] ([facility], [facility]) Diastolic blood pressure 87 mm[Hg] 87 mm[Hg] [facility] ([facility], [facility]) Systolic blood pressure 137 mm[Hg] 137 mm[Hg] M [facility] ([facility], [facility]) Body surface area Derived from formula 2.08 m2 2.08 m2 [facility] ([facility]) Body mass index (BMI) [Ratio] 37.6 kg/m2 37.6 k g/m2 [facility] ([facility]) Body height 65 [in_i] 65 [in_i] [facility] ([facility]) 5'5" Body weight 102.514 kg 102.514 kg [facility] ([facility]) Body weight 226.00 [lb_av] 226.00 [lb_av] [facility] T ([facility]) Oxygen saturation in Arterial blood by Pulse oximetry 97 % 97 % [facility] ([facility]) Respiratory rate 16 /min 16 /min [facility] ( [facility]) Body temperature 98.7 [degF] 98.7 [degF] [facility] ([facility]) Heart rate 82 /min 82 /min [facility] ([facility]) Diastolic blood pressure 74 mm[Hg] 74 mm[Hg] [facility] ([facility]) Systolic blood pressure 120 mm[Hg] 120 mm[Hg] [facility]) Body surface area 2.08 m2 2.08 m2 [facility] ([facility]) Patient Treatment Plan of Care Planned Activity Planned Date Details Description Data Source (s) Lorazepam 1 MG Oral Tablet [Ativan] 08/13/2019 12:00:00 AM EDT eCW1 ([facility]) Lorazepam 1 MG Oral Tablet [Ativan] 08/13/2019 12:00:00 AM EDT eCW1 ([facility]) Lorazepam 1 MG Oral Tablet [Ativan] 08/13/2019 12:00:00 AM EDT eCW1 ([facility])
--- OUTSIDE RECORDS SUMMARY | 2020-06-02 08:18 | CCD ---
Author Author [facility] Organization [facility] Address Unknown Phone Unavailable Care Team Providers Care Operations Research Scientist Name Role Phone Chet Robins Unavailable PROBLEMS Type Condition ICD9-CM Code [id number] Code Onset Dates Condition S tatus SNOMED Code Notes Problem Primary osteoarthritis of left knee M17.12 Acti ve 919308467 Problem Postsurgical hypothyroidism E89.0 Active 2705 9002 Problem Mixed hyperlipidemia E78.2 Active 006607698 Problem Low back pain radiating to right leg M54.5 Act wes 956650612 Problem Bursitis of other bursa of right hip M70.71 Act wes 90168248 Problem History of tobacco use Z87.891 Active 384761173 9103 Problem Genital herpes simplex, unspecified site A60.00 Active 68441647 Problem External hemorrhoids K64.4 Active 50825220 Problem Mild persistent asthma without complication J45.30 Active 650607964 Problem MS (multiple sclerosis) G35 Active 94278994 Problem MICHELLE positive R76.8 Active 850883955 Problem Insomnia, unspecified type G47.00 Active 98713 2001 Problem Mild intermittent asthma without complication J45. 20 Active 050891828 Problem MCTD (mixed connective tissue disease) M35.1 A ctive 950044942 Problem Anxiety F41.9 Active 84468951 Problem Pain in left hip M25.552 Active 50612690 Problem Pain in right hip M25.551 Active 03424069 Problem Essential (primary) hypertension I10 Active 93982067 ALLERGIES Allergen (clinical drug ingredient) Drug/Non Drug Allergy do cumented on EMR Reaction Allergy Type Onset Date Status Vicodin Agitation Drug Allergy Active vancomycin Vancomycin HCl([facility] Code:[address]-13) Hives Drug All ergy Active Codeine Phosphate([facility] Code:[address]-38) Hives Drug Allergy Active carisoprodol Soma([facility] Code:[address]-39) hands itch Drug Allergy Active IVP Dye Anaphylaxis Non Drug Allergy Active promethazine Phenergan([facility] Code:[address]-09) Agitation Drug Allerg y Active Sulfa (for allergy use only) HIves Drug Allergy Active Penicillin (For Allergies Use Only) anaphylaxis Drug Aller gy Active atropine / hyoscyamine / phenobarbital / scopolamine D onnatal([facility] Code:[address]-82) HIves Drug Allergy Active ketorolac Ketorolac Tromethamine([facility] Code:[address]-41) Gi Blee d Drug Allergy Active Nitro-Dur([facility] Code:[address]-93) increased HR Drug Allerg y Active ENCOUNTERS from 1965 to 2020-04-17 Encounter Location Date Provider Diagnosis [address] [address] Apr, Anhpatricio Shimon IMMUNIZATIONS Vaccine Route Administration Date Status Influenza (6mo & up) Fluzone Unknown Feb 09, 2016 Adm inistered SOCIAL HISTORY Tobacco Use: Social History Observation Description Date Details (start date - stop date) Current Smoker Sex Assigned At : Social History Observation Description Sex Assigned At Unknown Education: Question Answer Notes Level of Education: High School Language: Question Answer Notes Languages spoken: Nigerian Anabaptist: Question Answer Notes Anabaptist 33 None Alcohol Screening: Question Answer Notes [...] Information RESULTS No Results REASON FOR VISIT Missed appt MEDICAL (GENERAL) HISTORY Type Description Date Medical History multiple sclerosis Medical History anxiety Medical History HTN Medical History low back pain Medical History asthma Medical History tobacco abuse Medical History GERD Medical History cervicalgia Medical History thyroid problems Medical History MICHELLE positive Surgical History back surgery 2002 Surgical History right partial thyroidectomy 1982 Surgical History partial hysterectomy 2007 Surgical History 6 kidney surgeries [id number] Surgical History bladder surgery 1996 Surgical History [...] 300 MG 3 capsule Orally bid August, Insurance Providers Payer Name Payer Address Payer Phone Insured Name Patient Relati onship to Insured Coverage Start Date Coverage End Date MEDICARE COMPLETE [employer] [address] [address] [facility] [phone] AYSHA,TAMMY RANGEL self
--- OUTSIDE RECORDS SUMMARY | 2020-06-02 08:18 | CCD ---
Author Author [facility] Organization [facility] Address Unknown Phone Unavailable Care Team Providers Care Ultrasonic Seaming Machine Operator Name Role Phone Chet Robins Unavailable PROBLEMS Type Condition ICD9-CM Code [id number] Code Onset Dates Condition S tatus SNOMED Code Notes Problem Primary osteoarthritis of left knee M17.12 Acti ve 128000618 Problem Postsurgical hypothyroidism E89.0 Active 2705 9002 Problem Mixed hyperlipidemia E78.2 Active 990376941 Problem Low back pain radiating to right leg M54.5 Act wes 326975716 Problem Bursitis of other bursa of right hip M70.71 Act wes 64260239 Problem History of tobacco use Z87.891 Active 309523017 9103 Problem Genital herpes simplex, unspecified site A60.00 Active 37236992 Problem External hemorrhoids K64.4 Active 99230766 Problem Mild persistent asthma without complication J45.30 Active 350378597 Problem MS (multiple sclerosis) G35 Active 23040846 Problem MICHELLE positive R76.8 Active 979178001 Problem Insomnia, unspecified type G47.00 Active 88145 2001 Problem Mild intermittent asthma without complication J45. 20 Active 555567741 Problem MCTD (mixed connective tissue disease) M35.1 A ctive 429276280 Problem Anxiety F41.9 Active 27202517 Problem Pain in left hip M25.552 Active 94627426 Problem Pain in right hip M25.551 Active 71947350 Problem Essential (primary) hypertension I10 Active 77905449 ALLERGIES Allergen (clinical drug ingredient) Drug/Non Drug Allergy do cumented on EMR Reaction Allergy Type Onset Date Status Vicodin Agitation Drug Allergy Active vancomycin Vancomycin HCl([facility] Code:[address]-78) Hives Drug All ergy Active Codeine Phosphate([facility] Code:[address]-84) Hives Drug Allergy Active carisoprodol Soma([facility] Code:[address]-72) hands itch Drug Allergy Active IVP Dye Anaphylaxis Non Drug Allergy Active promethazine Phenergan([facility] Code:[address]-25) Agitation Drug Allerg y Active Sulfa (for allergy use only) HIves Drug Allergy Active Penicillin (For Allergies Use Only) anaphylaxis Drug Aller gy Active atropine / hyoscyamine / phenobarbital / scopolamine D onnatal([facility] Code:[address]-49) HIves Drug Allergy Active ketorolac Ketorolac Tromethamine([facility] Code:[address]-81) Gi Blee d Drug Allergy Active Nitro-Dur([facility] Code:[address]-33) increased HR Drug Allerg y Active ENCOUNTERS from 1965 to 2020-04-16 Encounter Location Date Provider Diagnosis [address] [address] Apr, Chet Shimon IMMUNIZATIONS Vaccine Route Administration [...] School Language: Question Answer Notes Languages spoken: [place] Islander Lutheran: Question Answer Notes Lutheran 33 None Alcohol Screening: Question Answer Notes [...] Information RESULTS No Results REASON FOR VISIT n/s MEDICAL (GENERAL) HISTORY Type Description Date Medical History multiple sclerosis Medical History anxiety Medical History HTN Medical History low back pain Medical History asthma Medical History tobacco abuse Medical History GERD Medical History cervicalgia Medical History thyroid problems Medical History MICHELLE positive Surgical History back surgery 2002 Surgical History right partial thyroidectomy 1982 Surgical History partial hysterectomy 2007 Surgical History 6 kidney surgeries 4464-2921 Surgical History bladder surgery 1996 Surgical History [...] Date MEDICARE COMPLETE UNITED HEALTHCARE [address] [address] [facility] [address] AYSHA,TAMMY RANGEL self
--- OUTSIDE RECORDS SUMMARY | 2020-06-02 08:18 | CCD ---
Author Author [facility] Organization [facility] Address Unknown Phone Unavailable Care Team Providers Care Fax Machine Operator Name Role Phone Chet Robins Unavailable PROBLEMS Type Condition ICD9-CM Code QIX96-PP Code Onset Dates Condition S tatus SNOMED Code Notes Problem Primary osteoarthritis of left knee M17.12 Acti ve 872484486 Problem Postsurgical hypothyroidism E89.0 Active 2705 9002 Problem Mixed hyperlipidemia E78.2 Active 372173759 Problem Low back pain radiating to right leg M54.5 Act wes 642230423 Problem Bursitis of other bursa of right hip M70.71 Act wes 79968309 Problem History of tobacco use Z87.891 Active 438186152 9103 Problem Genital herpes simplex, unspecified site A60.00 Active 77878202 Problem External hemorrhoids K64.4 Active 23588114 Problem Mild persistent asthma without complication J45.30 Active 288064922 Problem MS (multiple sclerosis) G35 Active 18866885 Problem MICHELLE positive R76.8 Active 282690476 Problem Insomnia, unspecified type G47.00 Active 70301 2001 Problem Mild intermittent asthma without complication J45. 20 Active 734266253 Problem MCTD (mixed connective tissue disease) M35.1 A ctive 433568118 Problem Anxiety F41.9 Active 93290525 Problem Pain in left hip M25.552 Active 81082428 Problem Pain in right hip M25.551 Active 56242863 Problem Essential (primary) hypertension I10 Active 76993260 ALLERGIES Allergen (clinical drug ingredient) Drug/Non Drug Allergy do cumented on EMR Reaction Allergy Type Onset Date Status Vicodin Agitation Drug Allergy Active vancomycin Vancomycin HCl([facility] Code:[address]-44) Hives Drug All ergy Active Codeine Phosphate([facility] Code:[address]-03) Hives Drug Allergy Active carisoprodol Soma([facility] Code:[address]-94) hands itch Drug Allergy Active IVP Dye Anaphylaxis Non Drug Allergy Active promethazine Phenergan([facility] Code:[address]-65) Agitation Drug Allerg y Active Sulfa (for allergy use only) HIves Drug Allergy Active Penicillin (For Allergies Use Only) anaphylaxis Drug Aller gy Active atropine / hyoscyamine / phenobarbital / scopolamine D onnatal([facility] Code:[address]-96) HIves Drug Allergy Active ketorolac Ketorolac Tromethamine([facility] Code:[address]-80) Gi Blee d Drug Allergy Active Nitro-Dur([facility] Code:[address]-66) increased HR Drug Allerg y Active ENCOUNTERS from 1965 to 2020-03-23 Encounter Location Date Provider Diagnosis [address] [address] Mar, Anhpatricio Shimon IMMUNIZATIONS Vaccine Route Administration Date Status Influenza (6mo & up) Fluzone Unknown Feb 09, 2016 Adm inistered SOCIAL HISTORY Tobacco Use: Social History Observation Description Date Details (start date - stop date) Current Smoker Sex Assigned At : Social History Observation Description Sex Assigned At Unknown Education: Question Answer Notes Level of Education: High School Language: Question Answer Notes Languages spoken: Iranian Nondenominational: Question Answer Notes Nondenominational 33 None [...] Information RESULTS No Results REASON FOR VISIT No Information MEDICAL (GENERAL) HISTORY Type Description Date Medical History multiple sclerosis Medical History anxiety Medical History HTN Medical History low back pain Medical History asthma Medical History tobacco abuse Medical History GERD Medical History cervicalgia Medical History thyroid problems Medical History MICHELLE positive Surgical History back surgery 2002 Surgical History right partial thyroidectomy 1982 Surgical History partial hysterectomy 2007 Surgical History 6 kidney surgeries 5196-5580 Surgical History bladder surgery 1996 Surgical History [...] August, Next Appt Details Provider Name:Chet Robins, 2021-01-0 5 08:30:00 AM, [address] [place], [address], Insurance Providers Payer Name Payer Address Payer Phone Insured Name Patient Relati onship to Insured Coverage Start Date Coverage End Date MEDICARE COMPLETE UNITED HEALTHCARE [address] [address] [facility] [phone] AYSHA,TAMMY elizabeth
--- NOTE | 2020-06-02 08:54 | REP ---
INDICATION: sob. COMPARISON: Comparison chest x-ray January 25, 2020. TECHNIQUE: Portable upright AP chest radiograph. FINDINGS: The lungs are well inflated and free of infiltrate. Pleural angles are sharp. Heart size is normal. Pulmonary vasculature is not increased. There are surgical clips in the soft tissues of the neck on the right as before. IMPRESSION: No active disease. <Electronically signed by Nain Schmidt > 06/02/20 0879
[2020-06-02] MEDS ORDERED: MUCI600T31 PO (09:21)
[2020-06-02 09:55] VITALS: BP 157/77
== END 2020-06-02 10:00 | disposition home or self-care (01) ==
LOC: M ED 08:06
DX: J06.9 Acute upper respiratory infection, unspecified (principal); B34.9 Viral infection, unspecified; Z20.822 Contact with and (suspected) exposure to COVID-19; I10 Essential (primary) hypertension; G35 Multiple sclerosis; J45.909 Unspecified asthma, uncomplicated; F41.9 Anxiety disorder, unspecified; F33.9 Major depressive disorder, recurrent, unspecified; Z88.0 Allergy status to penicillin; Z88.1 Allergy status to other antibiotic agents; Z88.2 Allergy status to sulfonamides; Z88.6 Allergy status to analgesic agent; Z88.8 Allergy status to other drugs, medicaments and biological substances; Z79.899 Other long term (current) drug therapy
CPT/HCPCS: 71045; 87804; 99284; U0003

== ENCOUNTER 2020-07-07 01:47 | Emergency (ER) | payer MEDICARE ==
[~2020-07-07 01:47] MED LIST changes: +MUCI600T31 PO
[2020-07-07 03:34] LABS: RSV AMPLIFICATION NEGATIVE (NEGATIVE)
[2020-07-07 03:40] VITALS: BP 156/70
--- NOTE | 2020-07-07 04:19 | REPVR ---
PROCEDURE INFORMATION: Exam: XR Chest Exam date and time: 07/07/2020 3:18 AM Age: 55 years old Clinical indication: Shortness of breath; Additional info: SOB TECHNIQUE: Imaging protocol: XR of the chest Views: 1 view. COMPARISON: [facility] PORTABLE CHEST X-RAY 06/02/2020 8:44 AM FINDINGS: Tubes, catheters and devices: Surgical clips are noted in the lower right neck. Lungs: No interval infiltrates. Pleural spaces: Unremarkable. No pleural effusion. No pneumothorax. Heart/Mediastinum: The heart and mediastinum are unchanged. Bones/joints: Unremarkable. IMPRESSION: Stable chest since 06/02/2020. Electronically signed by: Kaleb Rangel On 07/07/2020 04:19:55 AM
--- NOTE | 2020-07-07 05:15 | ECGEPIP ---
[facility] - ED Test Date: 2020-07-07 Pat Name: TAMMY OLMSTEAD Department: Room: - Gender: Female C D Reactor Operator: bernabe : 1965 Requested By: Ji Duran Order Number: [id number] Reading MD: Sb Goldstein Measurements Intervals Nora Rate: 59 P: 19 [place]: 194 QRS: 14 QRSD: 86 T: 32 QT: 438 QTc: 433 Interpretive Statements Sinus bradycardia POOR R WAVE PROGRESSION NONSPECIFIC T WAVE ABNORMALITY(S) SIMILAR TO 01/25/20 Electronically Signed on 07-07-2020 5:15:15 EDT by Sb Goldstein
== END 2020-07-07 04:29 | disposition home or self-care (01) ==
LOC: M ED 01:47
DX: R06.02 Shortness of breath (principal); J45.909 Unspecified asthma, uncomplicated; K21.9 Gastro-esophageal reflux disease without esophagitis; G35 Multiple sclerosis; F17.200 Nicotine dependence, unspecified, uncomplicated; Z88.1 Allergy status to other antibiotic agents; Z88.2 Allergy status to sulfonamides; Z88.6 Allergy status to analgesic agent; Z88.8 Allergy status to other drugs, medicaments and biological substances; Z91.041 Radiographic dye allergy status; Z79.899 Other long term (current) drug therapy

== ENCOUNTER 2020-10-15 18:21 | Emergency (ER) | payer MEDICARE ==
[~2020-10-15] VITALS: Ht 165.1 cm; Wt 98.3 kg
[2020-10-15 18:23] VITALS: BP 186/84
[2020-10-15] MEDS ORDERED: MORP30TASA (18:36)
== END 2020-10-15 20:54 | disposition left against medical advice (07) ==
LOC: M ED 18:21
DX: Z53.21 Procedure and treatment not carried out due to patient leaving prior to being seen by health care provider (principal)

== ENCOUNTER → 2021-05-08 | Outpatient (CLI) | payer MEDICARE ==
[~2021-05-08] MED LIST changes: +MORP30TASA
== END ==
LOC: M RAD 09:26
PROVIDERS: ATTEND Internal Medicine
DX: M51.36 Other intervertebral disc degeneration, lumbar region (principal); M43.16 Spondylolisthesis, lumbar region; M54.16 Radiculopathy, lumbar region

== ENCOUNTER → 2021-05-27 | Outpatient (CLI) | payer MEDICARE | LOC: M PLAIMG 09:26 | PROVIDERS: ATTEND Internal Medicine | DX: M54.16 Radiculopathy, lumbar region (principal) ==

== ENCOUNTER 2021-09-24 17:51 | Emergency (ER) | payer MEDICARE ==
[~2021-09-24] VITALS: Ht 165.1 cm; Wt 96.8 kg
[2021-09-24 17:51] VITALS: BP 166/83
== END 2021-09-24 21:32 | disposition left against medical advice (07) ==
LOC: M ED 17:51
DX: Z53.21 Procedure and treatment not carried out due to patient leaving prior to being seen by health care provider (principal)

== ENCOUNTER → 2021-10-21 | Outpatient (CLI) | payer MEDICARE ==
[2021-10-21 09:16] LABS: HEMATOCRIT 42.3 % (36.0-47.0); HEMOGLOBIN 13.9 g/dl (12.0-15.5); MEAN CORPUSCULAR HEMOGLOBIN 28.8 pg (27.0-33.0); MEAN CORPUSCULAR HGB CONC 32.9 g/dl (32.0-36.5); MEAN CORPUSCULAR VOLUME 87.6 fl (80.0-96.0); PLATELET COUNT, AUTOMATED 281 10^3/uL (150-450); RED BLOOD COUNT 4.83 10^6/uL (4.00-5.40); WHITE BLOOD COUNT 9.3 10^3/uL (4.0-10.0)
[2021-10-21 09:34] LABS: ERYTHROCYTE SEDIMENTATION RATE 31 mm/hr (0-30)
[2021-10-21 09:52] LABS: ALBUMIN 3.2 GM/DL (3.2-5.2); ALT/SGPT 19 U/L (12-78); BILIRUBIN,TOTAL 0.6 MG/DL (0.2-1.0); BLOOD UREA NITROGEN 13 MG/DL (7-18); C REACTIVE PROTEIN QUANTITATIV 1.84 MG/DL (0.00-0.30); CALCIUM LEVEL 9.1 MG/DL (8.5-10.1); CARBON DIOXIDE LEVEL 27 MEQ/L (21-32); CHLORIDE LEVEL 108 MEQ/L (98-107); CHOLESTEROL LEVEL 184 MG/DL (<200); CHOLESTEROL RISK RATIO 3.118 (<5); CREATININE FOR GFR 0.88 MG/DL (0.55-1.30); GLOMERULAR FILTRATION RATE > 60.0 (>51); GLUCOSE, FASTING 108 MG/DL (70-100); HDL CHOLESTEROL 59 MG/DL (>40); LDL CHOLESTEROL 108 MG/DL (<100); NON-HDL-C 125 MG/DL; POTASSIUM SERUM 4.3 MEQ/L (3.5-5.1); RHEUMATOID FACTOR QUANT < 10.0 IU/ML (<15.0); SODIUM LEVEL 140 MEQ/L (136-145); TOTAL PROTEIN 7.2 GM/DL (6.4-8.2); TRIGLYCERIDES LEVEL 87 MG/DL (<150)
[2021-10-21 09:59] LABS: HEMOGLOBIN A1c 5.8 %
[2021-10-21 10:00] LABS: VITAMIN B12 LEVEL 392 PG/ML (247-911)
[2021-10-23 01:07] LABS: ANTI DOUBLE STRAND-DNA AB 1 IU/mL (0-9); ANTINUCLEAR ANTIBODIES DIRECT Positive (Negative); CYCLIC CITRULLINATED PEPTIDE 8 units (0-19); RNP ANTIBODIES 4.1 AI (0.0-0.9); SJOGREN'S ANTI SS-A <0.2 AI (0.0-0.9); SJOGREN'S ANTI SS-B <0.2 AI (0.0-0.9); SMITH ANTIBODIES <0.2 AI (0.0-0.9)
== END ==
LOC: M LAB 08:47
PROVIDERS: ATTEND Internal Medicine
DX: M79.7 Fibromyalgia (principal)

== ENCOUNTER → 2021-11-02 | Outpatient (CLI) | payer MEDICARE | LOC: M SOG 13:27 | PROVIDERS: ATTEND Physician Assistant | DX: M17.12 Unilateral primary osteoarthritis, left knee (principal) ==

== ENCOUNTER → 2022-02-03 | Outpatient (CLI) | payer MEDICARE | LOC: M PLAIMG 13:31 | PROVIDERS: ATTEND Orthopaedic Surgery Hand Surgery | DX: S83.232A Complex tear of medial meniscus, current injury, left knee, initial encounter (principal); M94.262 Chondromalacia, left knee; X58.XXXA Exposure to other specified factors, initial encounter; Y92.9 Unspecified place or not applicable ==

== ENCOUNTER → 2022-02-09 | Outpatient (CLI) | payer MEDICARE ==
[~2022-02-09] MED LIST changes: -DOXY-342 PO; +DOXY100C81 PO
== END ==
LOC: M SOG 08:46
PROVIDERS: ATTEND Orthopaedic Surgery Adult Reconstructive Orthopaedic Surgery
DX: M25.562 Pain in left knee (principal); S83.242A Other tear of medial meniscus, current injury, left knee, initial encounter

== ENCOUNTER 2022-02-22 17:17 | Emergency (ER) | payer MEDICARE ==
[~2022-02-22] VITALS: Ht 165.1 cm; Wt 102.9 kg
[2022-02-22 17:18] VITALS: BP 162/90
[2022-02-22] MEDS ORDERED: META1TAB22 (17:54)
[2022-02-22 19:33] LABS: RSV AMPLIFICATION POSITIVE (NEGATIVE)
== END 2022-02-22 19:38 | disposition left against medical advice (07) ==
LOC: M ED 17:17
DX: Z53.21 Procedure and treatment not carried out due to patient leaving prior to being seen by health care provider (principal)

== ENCOUNTER → 2022-04-05 | Outpatient (CLI) | payer MEDICARE ==
[~2022-04-05] MED LIST changes: +BUPR300T92 PO; +FURO20TA2 PO; +GABA-282 PO; -MORP30TASA; +MORP30TASA PO; +ONDA4TAB6 PO; +VALA1TAB5 PO; +VENTAER INH
== END ==
LOC: M RAD 13:07
PROVIDERS: ATTEND Orthopaedic Surgery Adult Reconstructive Orthopaedic Surgery
DX: M17.12 Unilateral primary osteoarthritis, left knee (principal)

== ENCOUNTER → 2022-04-14 | Outpatient (CLI) | payer MEDICARE | LOC: M LABSMTC 09:19 | PROVIDERS: ATTEND Anesthesiology | DX: Z01.812 Encounter for preprocedural laboratory examination (principal); Z20.822 Contact with and (suspected) exposure to COVID-19 ==

== ENCOUNTER 2022-04-19 09:22 | Observation (INO) | payer MEDICARE ==
[~2022-04-19] VITALS: Ht 165.1 cm; Wt 98.8 kg
[2022-04-19] VITALS (7 sets, daily range): BP systolic 123–177; BP diastolic 59–107; O2SAT 96
[2022-04-19] MEDS: ASCORBIC ACID 500 MG TAB PO SCH (09:00)
[~2022-04-19 09:22] MED LIST changes: +PREGABALIN 25 MG CAP (LYRICA) PO ONE; +ROPIVA 125MG/EPINEPH 0.25MG/CLONID 40MCG IN NS 50ML SYRINGE PA ONE; +TRANEXAMIC ACID 100 MG/ML 10ML VIAL As Ordered ONE
[2022-04-19] MEDS ORDERED: MIDAZOLAM INJ 2MG/2ML VIAL As Ordered ONE (11:17)
[2022-04-19] MEDS ORDERED: ONDANSETRON 4MG 2ML VIAL As Ordered ONE ×2 (11:17→14:15)
[2022-04-19] MEDS ORDERED: LIDOCAINE 2% 100MG/5ML SDV (FOR ANES.) As Ordered ONE (11:17)
[2022-04-19] MEDS ORDERED: KETOROLAC 60MG 2ML VIAL As Ordered ONE (11:17)
[2022-04-19] MEDS ORDERED: propofoL 200 MG/20 ML VIAL As Ordered ONE (11:17)
[2022-04-19] MEDS ORDERED: fentaNYL 100 MCG/2 ML INJECTION As Ordered ONE ×3 (11:18→14:15)
[2022-04-19] MEDS ORDERED: ceFAZolin 1GM VIAL As Ordered ONE (11:32)
[2022-04-19] MEDS ORDERED: ACETAMINOPHEN 500 MG TAB PO ONE (11:40)
[2022-04-19] MEDS ORDERED: LABETALOL 100MG/20ML VIAL As Ordered ONE (12:35)
[2022-04-19] MEDS ORDERED: LR 1,000 ML IV SCH ×2 (14:10)
[2022-04-19] MEDS ORDERED: SENNA 8.6 MG TAB (SENOKOT) PO PRN (14:10)
[2022-04-19] MEDS ORDERED: ONDANSETRON 4MG 2ML VIAL IV PRN (14:10)
[2022-04-19] MEDS ORDERED: METOCLOPRAMIDE INJ 10MG/2ML VIAL IV PRN (14:10)
[2022-04-19] MEDS: fentaNYL 100 MCG/2 ML INJECTION IV PRN ×4 (14:18→14:33)
[2022-04-19] MEDS: MORPHINE 2 MG/ML 1ML VIAL IV PRN ×4 (14:37→15:38)
[2022-04-19] MEDS: HYDROMORPHONE HCL 0.5 MG/ 0.5 ML SYRINGE IV PRN ×6 (14:48→16:44)
[2022-04-19] MEDS: oxyCODONE 5MG TAB PO PRN ×3 (15:08→20:27)
[2022-04-19] MEDS ORDERED: ROPIvacaine 0.5% 30ML VIAL PN ONE (16:00)
[2022-04-19] MEDS ORDERED: LIDOCAINE 1% SDV 5ML VIAL PN ONE (16:00)
[2022-04-19] MEDS ORDERED: ALBUTEROL 90 MCG/ACT 8GM HFA INHALER INH PRN (16:35)
[2022-04-19] MEDS ORDERED: **hydrALAZINE HCL** 25 MG TAB PO PRN (16:40)
[2022-04-19 17:24] LABS: BASO % 0.2 % (0.0-1.0); EOS % 0.1 % (0.0-3.0); HEMATOCRIT 41.7 % (36.0-47.0); HEMOGLOBIN 13.9 g/dl (12.0-15.5); LYMPH # 0.8 10^3/uL (1.5-5.0); LYMPH % 4.9 % (24.0-44.0); MEAN CORPUSCULAR HEMOGLOBIN 29.5 pg (27.0-33.0); MEAN CORPUSCULAR HGB CONC 33.3 g/dl (32.0-36.5); MEAN CORPUSCULAR VOLUME 88.5 fl (80.0-96.0); MONO # 0.1 10^3/uL (0.0-0.8); MONO % 0.4 % (2.0-8.0); NEUTROPHILS # 15.9 10^3/uL (1.5-8.5); NEUTROPHILS % 93.6 % (36.0-66.0); PLATELET COUNT, AUTOMATED 309 10^3/uL (150-450); RED BLOOD COUNT 4.71 10^6/uL (4.00-5.40)
[2022-04-19] MEDS: ACETAMINOPHEN TAB 650MG DOSE (2X325MG) PO SCH ×2 (17:37→23:22)
[2022-04-19] MEDS: cloNIDine 0.1MG TABLET PO SCH (17:38)
[2022-04-19 17:48] LABS: MAGNESIUM LEVEL 1.8 MG/DL (1.8-2.4)
[2022-04-19] MEDS: MORPHINE 4 MG/ML 1ML VIAL IV PRN (18:55)
[2022-04-19 19:40] LABS: ALBUMIN 3.3 G/DL (3.2-5.2); ALKALINE PHOSPHATASE 88 U/L (46-116); ALT/SGPT 17 U/L (7.0-40); AST/SGOT 22 U/L (<34); BILIRUBIN,TOTAL 0.4 MG/DL (0.3-1.2); BLOOD UREA NITROGEN 16 MG/DL (9-23); CALCIUM LEVEL 8.7 MG/DL (8.5-10.1); CARBON DIOXIDE LEVEL 24 MMOL/L (20-31); CHLORIDE LEVEL 103 MMOL/L (98-107); CREATININE FOR GFR 0.75 MG/DL (0.55-1.30); GLOMERULAR FILTRATION RATE > 60.0 (>51); GLUCOSE, FASTING 145 MG/DL (60-100); POTASSIUM SERUM 4.3 MMOL/L (3.5-5.1); SODIUM LEVEL 137 MMOL/L (136-145)
[2022-04-19] MEDS: DOCUSATE SODIUM 100MG CAPSULE PO SCH (20:26)
[2022-04-19] MEDS: ASPIRIN 81MG ENTERIC TABLET PO SCH (20:26)
[2022-04-19] MEDS: ceFAZolin SOD 2 GM in IV 1 EA IV SCH (20:28)
[2022-04-19] MEDS ORDERED: cloNIDine 0.1MG TABLET PO SCH (21:00)
[2022-04-20] VITALS (7 sets, daily range): BP systolic 139–194; BP diastolic 79–104; O2SAT 95
[2022-04-20] MEDS: oxyCODONE 5MG TAB PO PRN ×5 (00:35→18:05)
[2022-04-20] MEDS: ceFAZolin SOD 2 GM in IV 1 EA IV SCH (03:07)
[2022-04-20] MEDS: MORPHINE 4 MG/ML 1ML VIAL IV PRN ×6 (03:07→22:18)
[2022-04-20] MEDS: ONDANSETRON 4MG 2ML VIAL IV PRN ×2 (03:07→12:38)
[2022-04-20] MEDS: LEVOTHYROXINE 50MCG TABLET (0.05MG) PO SCH (04:42)
[2022-04-20] MEDS: ACETAMINOPHEN TAB 650MG DOSE (2X325MG) PO SCH ×3 (04:42→18:03)
[2022-04-20] MEDS ORDERED: GABAPENTIN 300 MG CAP PO ONE (05:00)
[2022-04-20 05:58] LABS: BASO % 0.1 % (0.0-1.0); HEMATOCRIT 39.3 % (36.0-47.0); HEMOGLOBIN 13.1 g/dl (12.0-15.5); LYMPH # 1.8 10^3/uL (1.5-5.0); MEAN CORPUSCULAR HGB CONC 33.3 g/dl (32.0-36.5); MEAN CORPUSCULAR VOLUME 87.1 fl (80.0-96.0); MONO % 5.6 % (2.0-8.0); NEUTROPHILS # 14.7 10^3/uL (1.5-8.5); NEUTROPHILS % 83.7 % (36.0-66.0); PLATELET COUNT, AUTOMATED 315 10^3/uL (150-450); RED BLOOD COUNT 4.51 10^6/uL (4.00-5.40); WHITE BLOOD COUNT 17.6 10^3/uL (4.0-10.0)
[2022-04-20] MEDS: MORPHINE 30 MG SA TAB PO SCH ×3 (05:58→22:19)
[2022-04-20 06:19] LABS: ALBUMIN 3.2 G/DL (3.2-5.2); ALKALINE PHOSPHATASE 81 U/L (46-116); ALT/SGPT 11 U/L (7.0-40); AST/SGOT 20 U/L (<34); BILIRUBIN,TOTAL 0.4 MG/DL (0.3-1.2); BLOOD UREA NITROGEN 11 MG/DL (9-23); CALCIUM LEVEL 8.7 MG/DL (8.5-10.1); CARBON DIOXIDE LEVEL 24 MMOL/L (20-31); CHLORIDE LEVEL 105 MMOL/L (98-107); CREATININE FOR GFR 0.72 MG/DL (0.55-1.30); GLOMERULAR FILTRATION RATE > 60.0 (>51); GLUCOSE, FASTING 147 MG/DL (60-100); SODIUM LEVEL 138 MMOL/L (136-145); TOTAL PROTEIN 6.9 G/DL (5.7-8.2)
[2022-04-20] MEDS: DOCUSATE SODIUM 100MG CAPSULE PO SCH ×2 (09:47→21:17)
[2022-04-20] MEDS: cloNIDine 0.1MG TABLET PO SCH ×2 (09:47→21:17)
[2022-04-20] MEDS: ASPIRIN 81MG ENTERIC TABLET PO SCH ×2 (09:47→21:17)
[2022-04-20] MEDS: ASCORBIC ACID 500 MG TAB PO SCH (09:48)
[2022-04-20] MEDS: buPROPion **XL** TABLET 150MG (WELLBUTRIN XL) PO SCH (09:48)
[2022-04-20] MEDS ORDERED: oxyCODONE 5MG TAB PO PRN (12:00)
[2022-04-20] MEDS ORDERED: MORPHINE 30 MG SA TAB PO ONE (12:35)
[2022-04-20] MEDS: valACYclovir HCL 500 MG TAB PO SCH (12:39)
[2022-04-20] MEDS ORDERED: IBUPROFEN 600MG TAB PO ONE (12:40)
[2022-04-20] MEDS: IBUPROFEN 600MG TAB PO SCH (22:19)
[2022-04-21] MEDS: ACETAMINOPHEN TAB 650MG DOSE (2X325MG) PO SCH ×4 (00:18→17:55)
[2022-04-21] MEDS: GABAPENTIN 300 MG CAP PO SCH ×3 (00:19→21:19)
[2022-04-21] MEDS: oxyCODONE 5MG TAB PO PRN ×4 (00:19→19:50)
[2022-04-21] MEDS: MORPHINE 4 MG/ML 1ML VIAL IV PRN ×5 (01:26→14:50)
[2022-04-21] MEDS: MORPHINE 30 MG SA TAB PO SCH ×3 (06:28→21:18)
[2022-04-21] MEDS: IBUPROFEN 600MG TAB PO SCH ×3 (06:28→21:19)
[2022-04-21] MEDS: LEVOTHYROXINE 50MCG TABLET (0.05MG) PO SCH (06:28)
[2022-04-21 06:36] VITALS: BP 155/95
[2022-04-21] MEDS: valACYclovir HCL 500 MG TAB PO SCH (08:12)
[2022-04-21] MEDS: cloNIDine 0.1MG TABLET PO SCH ×2 (08:14→21:18)
[2022-04-21] MEDS: buPROPion **XL** TABLET 150MG (WELLBUTRIN XL) PO SCH (08:15)
[2022-04-21] MEDS: ASCORBIC ACID 500 MG TAB PO SCH (08:15)
[2022-04-21] MEDS: ASPIRIN 81MG ENTERIC TABLET PO SCH ×2 (08:15→21:19)
[2022-04-21] MEDS: DOCUSATE SODIUM 100MG CAPSULE PO SCH ×2 (08:15→21:19)
[2022-04-21 14:00] VITALS: BP 146/85
[2022-04-21] MEDS: ONDANSETRON 4MG 2ML VIAL IV PRN (15:25)
[2022-04-21 20:00] VITALS: BP 149/87
[2022-04-22] MEDS: ACETAMINOPHEN TAB 650MG DOSE (2X325MG) PO SCH ×3 (00:21→12:14)
[2022-04-22] MEDS: oxyCODONE 5MG TAB PO PRN ×3 (02:29→15:07)
[2022-04-22 05:00] VITALS: BP 145/79
[2022-04-22] MEDS: LEVOTHYROXINE 50MCG TABLET (0.05MG) PO SCH (06:00)
[2022-04-22] MEDS: MORPHINE 30 MG SA TAB PO SCH ×2 (06:01→14:12)
[2022-04-22] MEDS: IBUPROFEN 600MG TAB PO SCH ×2 (06:01→14:11)
[2022-04-22 08:22] LABS: BASO # 0.1 10^3/uL (0.0-0.2); BASO % 0.7 % (0.0-1.0); EOS # 0.5 10^3/uL (0.0-0.5); EOS % 4.1 % (0.0-3.0); HEMOGLOBIN 12.7 g/dl (12.0-15.5); LYMPH # 2.3 10^3/uL (1.5-5.0); LYMPH % 20.1 % (24.0-44.0); MEAN CORPUSCULAR HEMOGLOBIN 28.7 pg (27.0-33.0); MEAN CORPUSCULAR HGB CONC 32.6 g/dl (32.0-36.5); MEAN CORPUSCULAR VOLUME 88.2 fl (80.0-96.0); MONO % 8.6 % (2.0-8.0); NEUTROPHILS # 7.4 10^3/uL (1.5-8.5); PLATELET COUNT, AUTOMATED 296 10^3/uL (150-450); RED BLOOD COUNT 4.42 10^6/uL (4.00-5.40); WHITE BLOOD COUNT 11.3 10^3/uL (4.0-10.0)
[2022-04-22] MEDS: ASPIRIN 81MG ENTERIC TABLET PO SCH (08:39)
[2022-04-22] MEDS: GABAPENTIN 300 MG CAP PO SCH (08:39)
[2022-04-22] MEDS: buPROPion **XL** TABLET 150MG (WELLBUTRIN XL) PO SCH (08:40)
[2022-04-22] MEDS: ASCORBIC ACID 500 MG TAB PO SCH (08:40)
[2022-04-22] MEDS: DOCUSATE SODIUM 100MG CAPSULE PO SCH (08:40)
[2022-04-22 08:50] VITALS: BP 148/90
[2022-04-22] MEDS: cloNIDine 0.1MG TABLET PO SCH (08:50)
[2022-04-22] MEDS: valACYclovir HCL 500 MG TAB PO SCH (10:28)
[2022-04-22 14:00] VITALS: BP 128/79
== END 2022-04-22 16:25 | disposition home health service (06) ==
LOC: M SDC 09:22 → M MS5PR 09:23 → M SDC 04-20 05:43 → M ED INP 04-20 05:45 → UNDOADMIN 04-20 05:45 → M MS5PR 04-20 05:47 → M ED INP 04-20 05:47 → UNDODISIN 04-22 16:25
PROVIDERS: ADMIT Orthopaedic Surgery Adult Reconstructive Orthopaedic Surgery; ATTEND Orthopaedic Surgery Adult Reconstructive Orthopaedic Surgery
DX: M17.12 Unilateral primary osteoarthritis, left knee (principal); I10 Essential (primary) hypertension; E03.9 Hypothyroidism, unspecified; F41.9 Anxiety disorder, unspecified; F32.A Depression, unspecified; G43.909 Migraine, unspecified, not intractable, without status migrainosus; J45.909 Unspecified asthma, uncomplicated; Z79.51 Long term (current) use of inhaled steroids; Z79.899 Other long term (current) drug therapy; G35 Multiple sclerosis; M10.9 Gout, unspecified; K58.8 Other irritable bowel syndrome; Z91.040 Latex allergy status; Z88.0 Allergy status to penicillin; Z88.5 Allergy status to narcotic agent; Z88.1 Allergy status to other antibiotic agents; Z88.8 Allergy status to other drugs, medicaments and biological substances; F17.210 Nicotine dependence, cigarettes, uncomplicated; F12.10 Cannabis abuse, uncomplicated
CPT/HCPCS: 27447; 36415; 73560; 80053; 83735; 85025; 88304; 88311; 96365; 96366; 96375; 96376; 97110; 97116; 97161; 97165; 97530; C1776; G0378; J1100; J2405

== ENCOUNTER → 2022-05-02 | Outpatient (CLI) | payer MEDICARE ==
[~2022-05-02] MED LIST changes: -PREGABALIN 25 MG CAP (LYRICA) PO ONE; -ROPIVA 125MG/EPINEPH 0.25MG/CLONID 40MCG IN NS 50ML SYRINGE PA ONE; -TRANEXAMIC ACID 100 MG/ML 10ML VIAL As Ordered ONE
== END ==
LOC: M SOG 07:50
PROVIDERS: ATTEND Orthopaedic Surgery Adult Reconstructive Orthopaedic Surgery
DX: M17.12 Unilateral primary osteoarthritis, left knee (principal); Z96.652 Presence of left artificial knee joint

== ENCOUNTER → 2022-08-15 | Outpatient (CLI) | payer MEDICARE | LOC: M SOG 08:07 | PROVIDERS: ATTEND Orthopaedic Surgery | DX: Z96.652 Presence of left artificial knee joint (principal) ==

== ENCOUNTER 2023-03-01 08:15 | Emergency (ER) | payer MEDICARE, OTHER ==
[~2023-03-01] VITALS: Ht 165.1 cm; Wt 104.5 kg
[~2023-03-01 08:15] MED LIST changes: -DOXY100C81 PO; +DOXY100C82 PO; +MELA5CAP2 PO; +SENN-83
[2023-03-01] MEDS ORDERED: DOXYCYCLINE HYCLATE 100MG TABLET PO ONE (09:10)
[2023-03-01] MEDS ORDERED: metroNIDAZOLE (FLAGYL) 500MG TABLET PO ONE (09:10)
[2023-03-01] MEDS ORDERED: METR-265 PO (11:19)
[2023-03-01] MEDS ORDERED: DOXY-443 PO (11:19)
[2023-03-01 11:24] VITALS: BP 152/91; TEMP 96.7; O2SAT 99
== END 2023-03-01 11:30 | disposition home or self-care (01) ==
LOC: M ED 08:15
DX: S61.032A Puncture wound without foreign body of left thumb without damage to nail, initial encounter (principal); W55.01XA Bitten by cat, initial encounter; Y92.009 Unspecified place in unspecified non-institutional (private) residence as the place of occurrence of the external cause; Y93.89 Activity, other specified; Y99.8 Other external cause status; Z91.041 Radiographic dye allergy status; Z88.0 Allergy status to penicillin; Z88.2 Allergy status to sulfonamides; Z88.5 Allergy status to narcotic agent; F17.200 Nicotine dependence, unspecified, uncomplicated; Z79.899 Other long term (current) drug therapy; Z79.51 Long term (current) use of inhaled steroids

== ENCOUNTER → 2023-03-17 | Outpatient (REF) | payer MEDICARE ==
[~2023-03-17] MED LIST changes: +DOXY-443 PO; +METR-265 PO
[2023-03-17 13:40] LABS: BASO # 0.1 10^3/uL (0.0-0.2); BASO % 0.6 % (0.0-1.0); EOS # 0.7 10^3/uL (0.0-0.5); EOS % 6.1 % (0.0-3.0); HEMOGLOBIN 13.4 g/dl (12.0-15.5); LYMPH # 3.5 10^3/uL (1.5-5.0); LYMPH % 29.9 % (24.0-44.0); MEAN CORPUSCULAR HEMOGLOBIN 29.3 pg (27.0-33.0); MEAN CORPUSCULAR HGB CONC 32.7 g/dl (32.0-36.5); MEAN CORPUSCULAR VOLUME 89.7 fl (80.0-96.0); MONO # 0.9 10^3/uL (0.0-0.8); MONO % 7.4 % (2.0-8.0); NEUTROPHILS # 6.5 10^3/uL (1.5-8.5); NEUTROPHILS % 55.8 % (36.0-66.0); PLATELET COUNT, AUTOMATED 335 10^3/uL (150-450); RED BLOOD COUNT 4.57 10^6/uL (4.00-5.40); WHITE BLOOD COUNT 11.7 10^3/uL (4.0-10.0)
[2023-03-17 14:02] LABS: ALBUMIN 3.2 G/DL (3.2-5.2); ALKALINE PHOSPHATASE 95 U/L (46-116); ALT/SGPT 24 U/L (7.0-40); AST/SGOT 18 U/L (<34); BILIRUBIN,TOTAL 0.3 MG/DL (0.3-1.2); BLOOD UREA NITROGEN 22 MG/DL (9-23); CALCIUM LEVEL 8.7 MG/DL (8.5-10.1); CARBON DIOXIDE LEVEL 28 MMOL/L (20-31); CHLORIDE LEVEL 107 MMOL/L (98-107); CHOLESTEROL LEVEL 220 MG/DL (<200); CHOLESTEROL RISK RATIO 3.67 (<5); CREATININE FOR GFR 0.99 MG/DL (0.55-1.30); GLOMERULAR FILTRATION RATE > 60.0 (>51); GLUCOSE, FASTING 79 MG/DL (60-100); HDL CHOLESTEROL 59.9 MG/DL (>40); LDL CHOLESTEROL 132.1 MG/DL (<100); NON-HDL-C 160.1 MG/DL; POTASSIUM SERUM 4.4 MMOL/L (3.5-5.1); SODIUM LEVEL 141 MMOL/L (136-145); TOTAL PROTEIN 7.1 G/DL (5.7-8.2); TRIGLYCERIDES LEVEL 140 MG/DL (<150)
[2023-03-17 14:03] LABS: THYROID STIMULATING HORMONE 3.427 uIU/ML (0.55-4.78)
[2023-03-17 14:19] LABS: HEMOGLOBIN A1c 5.9 % (4.0-6.0)
== END ==
LOC: M LAB REF 12:17
PROVIDERS: ATTEND Nurse Practitioner Family
DX: Z13.228 Encounter for screening for other metabolic disorders (principal); Z79.899 Other long term (current) drug therapy

== ENCOUNTER → 2023-06-08 | Outpatient (REF) | payer MEDICARE ==
[2023-06-08 14:56] LABS: FOLATE 17.2 NG/ML (>5.4)
[2023-06-09 14:10] LABS: IgG P18 AB Absent (.); IgG P23 AB Present (.); IgG P28 AB Absent (.); IgG P30 AB Absent (.); IgG P39 AB Absent (.); IgG P41 AB Present (.); IgG P45 AB Absent (.); IgG P66 AB Absent (.); IgG P93 AB Absent (.); IgM P23 AB Present (.); IgM P39 AB Absent (.); IgM P41 AB Absent (.); LYME IgG WB INTERPRETATION Negative (.); LYME IgM WB INTERPRETATION Negative (.)
== END ==
LOC: M LAB REF 13:01
PROVIDERS: ATTEND Nurse Practitioner Family
DX: R53.83 Other fatigue (principal)

== ENCOUNTER 2023-07-29 06:56 | Emergency (ER) | payer MEDICARE ==
[~2023-07-29] VITALS: Ht 165.1 cm; Wt 103.6 kg
[2023-07-29] MEDS ORDERED: NALO25TA PO (09:11)
[2023-07-29] MEDS: MAGNESIUM CITRATE 300ML BTL PO ONE (09:14)
[2023-07-29 09:22] VITALS: BP 140/83; TEMP 97.5; O2SAT 97
== END 2023-07-29 09:25 | disposition home or self-care (01) ==
LOC: M ED 06:56
DX: K59.00 Constipation, unspecified (principal); F17.210 Nicotine dependence, cigarettes, uncomplicated; Z88.0 Allergy status to penicillin; Z88.2 Allergy status to sulfonamides; Z88.8 Allergy status to other drugs, medicaments and biological substances; Z91.041 Radiographic dye allergy status; Z79.51 Long term (current) use of inhaled steroids; Z79.899 Other long term (current) drug therapy

== ENCOUNTER → 2023-10-11 | Outpatient (CLI) | payer MEDICARE ==
[~2023-10-11] MED LIST changes: +BUPR-597 PO; -BUPR300T92 PO; +DOXY-323 PO; -DOXY-443 PO; +NALO25TA PO; +ONDA-282 PO; -ONDA4TAB6 PO
== END ==
LOC: M WHC 15:49
PROVIDERS: ATTEND Nurse Practitioner Family
DX: Z12.31 Encounter for screening mammogram for malignant neoplasm of breast (principal)